=== PATIENT | female | born 1940 | race Caucasian/White ===

== ENCOUNTER 2017-01-11 21:32 | Emergency (ER) | payer OTHER ==
[~2017-01-11] VITALS: Ht 165.1 cm; Wt 79.4 kg
[~2017-01-11 21:32] MED LIST: ASPI-934 PO; COR6.25 PO; CORDARONE PO; FAMO20TA98 PO; FLUT1DIS IH; HYDR-1189 PO; IRON1TAB8 PO; LOSA100T11 PO; ZOLP5TAB2 PO
[2017-01-11 21:39] VITALS: BP_SYST 162
[2017-01-12 00:04] VITALS: BP_SYST 144
== END 2017-01-12 00:04 | disposition home or self-care (01) ==
LOC: SED 21:32
DX: S83.92XA Sprain of unspecified site of left knee, initial encounter (principal); I10 Essential (primary) hypertension; Z86.73 Personal history of transient ischemic attack (TIA), and cerebral infarction without residual deficits; Z88.0 Allergy status to penicillin; Z88.2 Allergy status to sulfonamides; Z79.82 Long term (current) use of aspirin; Z79.899 Other long term (current) drug therapy; X58.XXXA Exposure to other specified factors, initial encounter; Y93.89 Activity, other specified; Y92.89 Other specified places as the place of occurrence of the external cause; Y99.8 Other external cause status
CPT/HCPCS: 73560-TC; 99284

== ENCOUNTER 2017-03-02 10:00 | Day surgery (SDC) | payer OTHER ==
[2017-02-28 11:55] LABS: BASOPHILS # (AUTO) 0.1 K/uL (0.0-0.2); BASOPHILS % (AUTO) 0.6 % (0.0-2.0); EOSINOPHILS # (AUTO) 0.2 K/uL (0.0-0.4); EOSINOPHILS % (AUTO) 2.2 % (0.0-4.0); HEMATOCRIT 47.3 % (36-48); HEMOGLOBIN 15.8 g/dL (12.0-16.0); LYMPHOCYTES % (AUTO) 22.9 % (20.5-51.5); MEAN CORPUSCULAR HEMOGLOBIN 32 pg (27-31); MEAN CORPUSCULAR HGB CONC 33 % (32-36); MEAN CORPUSCULAR VOLUME 95 fL (79.0-98.0); MONOCYTES # (AUTO) 0.6 K/uL (0.0-1.0); MONOCYTES % (AUTO) 6.5 % (1.7-9.3); NEUTROPHILS # (AUTO) 5.9 K/uL (1.8-7.7); NEUTROPHILS % (AUTO) 67.8 % (40.0-70.0); PLATELET COUNT (AUTO) 355 K/uL (130-430); RED BLOOD CELL COUNT(AUTO) 4.99 MIL/uL (4.2-6.2); WHITE BLOOD COUNT (AUTO) 8.8 K/uL (4.8-10.8)
[2017-02-28 11:56] LABS: ANION GAP 3 (5-15); CHLORIDE 102 mmol/L (98-107); GLUCOSE 101 mg/dL (70-99); SODIUM SERUM 139 mmol/L (136-145)
[2017-02-28 11:57] LABS: CALCIUM 9.5 mg/dL (8.4-11.0); CREATININE 0.91 mg/dL (0.55-1.30); PROTHROMBIN TIME 10.5 SECS (9.5-12.5); UREA NITROGEN, BLOOD 14 mg/dL (8-21)
[2017-02-28 12:11] LABS: BILIRUBIN,URINE NEGATIVE (NEGATIVE); BLOOD, URINE NEGATIVE (NEGATIVE); CLARITY/URINE HAZY (CLEAR); COLOR,URINE YELLOW (YELLOW); GLUCOSE,URINE NEGATIVE (NEGATIVE); KETONES,URINE NEGATIVE (NEGATIVE); LEUKOCYTE ESTERASE ,URINE 1+ (NEGATIVE); NITRITE, URINE POSITIVE (NEGATIVE); PROTEIN URINE NEGATIVE (NEGATIVE); UROBILINOGEN,URINE 0.2 (0.2-1.0)
[2017-02-28 13:02] LABS: BACTERIA,URINE MODERATE /HPF (None Seen); RBC,URINE 0-3 /HPF (0-3)
[~2017-03-02] VITALS: Ht 170.2 cm; Wt 62.6 kg
[2017-03-02] MEDS ORDERED: PROPOFOL 200MG/ 20ML VIAL (DIPRIVAN) IV ONE (11:45)
[2017-03-02] MEDS ORDERED: METOCLOPRAMIDE HCL 10 MG/2 ML VIAL IVP ONE (11:45)
[2017-03-02] MEDS ORDERED: DEXAMETHASONE SOD PHOSPHATE 4 MG/ML VIAL IVP ONE (11:45)
[2017-03-02] MEDS ORDERED: KETOROLAC TROMETHAMINE 30 MG VIAL IVP ONE (11:45)
[2017-03-02] MEDS ORDERED: MIDAZOLAM HCL 5 MG/5 ML VIAL IVP ONE (11:45)
[2017-03-02] MEDS ORDERED: BUPIVACAINE /EPINEPHRINE/PF 0.5% 30 ML VIAL INJ ONE (11:45)
[2017-03-02] MEDS ORDERED: fentaNYL CITRATE/PF 100 MCG/2 ML AMP IVP ONE (11:45)
[2017-03-02] MEDS ORDERED: LR 1,000 ML IV.SOLN IV ONE (11:45)
[2017-03-02] MEDS ORDERED: NS IRRIG SOLN 1000 ML IR ONE (11:45)
[2017-03-02] MEDS ORDERED: SEVOFLURANE 15 MIN GAS INH ONE (11:45)
[2017-03-02] MEDS ORDERED: LR 1,000 ML IV ONE (12:34)
[2017-03-02] MEDS ORDERED: ePHEDrine sulfate 50 MG/ML VIAL IVP PRN (12:45)
[2017-03-02] MEDS ORDERED: fentaNYL CITRATE/PF 100 MCG/2 ML AMP IVP PRN (12:45)
[2017-03-02] MEDS ORDERED: ONDANSETRON HCL 4 MG/2 ML VIAL IVP PRN ×2 (12:45)
[2017-03-02] MEDS ORDERED: DIPHENHYDRAMINE INJ 50 MG/ML VIAL IVP PRN (12:45)
[2017-03-02] MEDS ORDERED: NALBUPHINE HCL 10 MG/ML AMP IVP PRN (12:45)
[2017-03-02] MEDS ORDERED: NALOXONE HCL 0.4 MG/ML AMP (NARCAN) IVP PRN (12:45)
[2017-03-02] MEDS ORDERED: fentaNYL CITRATE/PF 100 MCG/2 ML AMP ONE (13:11)
[2017-03-02 13:45] VITALS: BP_SYST 137
[2017-03-02] MEDS ORDERED: ONDANSETRON HCL 4 MG/2 ML VIAL ONE (14:35)
[2017-03-02] MEDS ORDERED: HYDROcodone/ACETAMIN 5-325 MG TAB (NORCO/ VICODIN) ONE (14:36)
== END 2017-03-02 15:20 | disposition home or self-care (01) ==
LOC: SDS 10:00 → SMU 10:00 → SDS 15:20
PROVIDERS: ATTEND Orthopaedic Surgery
DX: M23.201 Derangement of unspecified lateral meniscus due to old tear or injury, left knee (principal); M22.02 Recurrent dislocation of patella, left knee; M17.12 Unilateral primary osteoarthritis, left knee; Z88.0 Allergy status to penicillin; Z88.8 Allergy status to other drugs, medicaments and biological substances; Z79.899 Other long term (current) drug therapy; F17.200 Nicotine dependence, unspecified, uncomplicated; J44.9 Chronic obstructive pulmonary disease, unspecified; Z95.1 Presence of aortocoronary bypass graft; I10 Essential (primary) hypertension; I25.10 Atherosclerotic heart disease of native coronary artery without angina pectoris; E78.5 Hyperlipidemia, unspecified; F41.9 Anxiety disorder, unspecified; Z90.710 Acquired absence of both cervix and uterus; Z98.890 Other specified postprocedural states
CPT/HCPCS: 27425; 29881; 36415; 71020; 80048; 81000; 85025; 85610; 85730; 93005; J1100; J1885; J2250; J2405; J2704; J2765; J3010; J3490; J7120

== ENCOUNTER 2022-01-02 18:02 | Inpatient (IN) | payer OTHER ==
[~2022-01-02] VITALS: Ht 172.7 cm; Wt 49.4 kg
[~2022-01-02 18:02] MED LIST changes: +FAMO-132 PO; -FAMO20TA98 PO; -HYDR-1189 PO; +HYDR-3919 PO; -LOSA100T11 PO; +LOSA100T3 PO
[2022-01-02 18:10] VITALS: BP_SYST 129
--- NOTE | 2022-01-02 18:10 | NUR ---
Patient to ER bed 01 for evaluation. Side rails up. Report given to Margaret FINN.
--- NOTE | 2022-01-02 18:10 | NUR ---
81yo f biba from home with c/o general weakness since this morning. denies pain. denies any other symptoms. in ed, vss. aox3. able to answer questions appropriately and follows commands. clear breath sounds. 2 siderails up. ermd made aware of pt status. pmh: Parkinsons, htn, copd
--- NOTE | 2022-01-02 18:16 | NUR ---
pt verbalized that she is unable to provide urine specimen at this time
[2022-01-02 19:01] LABS: CALCIUM 8.8 mg/dL (8.4-11.0); CHLORIDE 97 mmol/L (98-107); CREATININE 1.24 mg/dL (0.55-1.30); GLUCOSE 117 mg/dL (70-99); SODIUM SERUM 141 mmol/L (136-145); UREA NITROGEN, BLOOD 34 mg/dL (8-21)
[2022-01-02 19:05] LABS: ACETONE, SERUM NEGATIVE (NEGATIVE)
[2022-01-02 19:08] LABS: BASOPHILS % (AUTO) 0.2 % (0.0-2.0); EOSINOPHILS # (AUTO) 0.1 K/uL (0.0-0.4); EOSINOPHILS % (AUTO) 1.3 % (0.0-4.0); HEMATOCRIT 29.4 % (36-48); HEMOGLOBIN 10.2 g/dL (12.0-16.0); LYMPHOCYTES # (AUTO) 1.2 K/uL (1.0-5.5); LYMPHOCYTES % (AUTO) 11.5 % (20.5-51.5); MEAN CORPUSCULAR HEMOGLOBIN 32 pg (27-31); MEAN CORPUSCULAR HGB CONC 35 % (32-36); MEAN CORPUSCULAR VOLUME 92 fL (79.0-98.0); MONOCYTES # (AUTO) 0.6 K/uL (0.0-1.0); MONOCYTES % (AUTO) 5.8 % (1.7-9.3); NEUTROPHILS # (AUTO) 8.6 K/uL (1.8-7.7); NEUTROPHILS % (AUTO) 81.2 % (40.0-70.0); PLATELET COUNT (AUTO) 266 K/uL (130-430); RED CELL DISTRIBUTION WIDTH 14.8 % (9.0-15.0); WHITE BLOOD COUNT (AUTO) 10.6 K/uL (4.8-10.8)
--- NOTE | 2022-01-02 19:10 | NUR ---
REPORT GIVEN TO AAKASH WILSON. ALL CARES TRANSFERRED AT THIS TIME.
[2022-01-02 19:16] LABS: ALANINE AMINOTRANSFERASE 13 U/L (12-78); ALBUMIN 2.6 g/dL (3.4-4.8); ASPARTATE AMINOTRANSFERASE 23 U/L (10-37); TOTAL BILIRUBIN 0.5 mg/dL (0.0-1.0)
[2022-01-02 19:34] LABS: POTASSIUM 2.7 mmol/L (3.5-5.1)
[2022-01-02 19:36] LABS: ANION GAP 3 (5-15)
--- NOTE | 2022-01-02 20:09 | NUR ---
PT IS IN BED WITH BED LOWERED, LOCKED, AND RAILS UP. VS ARE WITHIN NORMAL LIMITS. PT DENIES ANY PAIN. INSERTED IV ON L AC/22 GAUGE. LOWERED O2 TO 1L PT O2 SAT WAS 100 HAS COPD.
--- NOTE | 2022-01-02 20:29 | NUR ---
Admit bed requested Patient will be admitted to care of . Admitted to TELE unit. Diagnosis ALOC,HYPOKALEMIA Inpatient (Yes or No) YES Observation (Yes or No) NO Orientation concerns or request close to nursing station (Yes or No) YES Covid Status PENDING On vent or bipap NO Isolation requirements NO Needs a sitter NO From Home (Yes or if No enter name of facility) YES Requires Dialysis (Yes or No) NO Med Rec Completed (Yes of No) PENDING
[2022-01-02] MEDS ORDERED: KCL 40 mEq in 100 mL (PREMIX) 100 ML IV ONE (20:30)
[2022-01-02] MEDS ORDERED: LR 1,000 ML IV SCH (20:30)
[2022-01-02] MEDS ORDERED: KCL 20 mEq in 100 mL (PREMIX) 200 ML IV ONE (20:54)
[2022-01-02 22:15] VITALS: BP_SYST 153
--- NOTE | 2022-01-03 00:07 | NUR ---
changed pt fluids from the LR to D5W 1000/100 ML UNABLE TO CHART STOP IN EMAR WAS ADV BY TEO RN (CHARGE NURSE)DO DOCUMENT CHANGE OF FLUIDS
[2022-01-03] MEDS: D5LR 1,000 ML IV SCH (00:10)
[2022-01-03] MEDS ORDERED: MORPHINE 2 MG/ML INJ. SYRINGE IVP ONE (01:00)
[2022-01-03] MEDS ORDERED: NALOXONE HCL 0.4 MG/ML AMP (NARCAN) IVP PRN (01:00)
[2022-01-03] MEDS ORDERED: MORPHINE 2 MG/ML INJ. SYRINGE ONE (01:14)
[2022-01-03] MEDS: ALBUTEROL SULFATE 0.083% 2.5 MG/3 ML VIAL.NEB INH SCH ×4 (01:29→20:28)
[2022-01-03 06:47] LABS: BASOPHILS % (AUTO) 0.3 % (0.0-2.0); EOSINOPHILS # (AUTO) 0.1 K/uL (0.0-0.4); EOSINOPHILS % (AUTO) 1.3 % (0.0-4.0); HEMATOCRIT 28.4 % (36-48); HEMOGLOBIN 9.9 g/dL (12.0-16.0); LYMPHOCYTES % (AUTO) 10.1 % (20.5-51.5); MEAN CORPUSCULAR HEMOGLOBIN 32 pg (27-31); MEAN CORPUSCULAR HGB CONC 35 % (32-36); MEAN CORPUSCULAR VOLUME 92 fL (79.0-98.0); MONOCYTES # (AUTO) 0.6 K/uL (0.0-1.0); MONOCYTES % (AUTO) 6.5 % (1.7-9.3); NEUTROPHILS # (AUTO) 7.8 K/uL (1.8-7.7); NEUTROPHILS % (AUTO) 81.8 % (40.0-70.0); PLATELET COUNT (AUTO) 249 K/uL (130-430); RED BLOOD CELL COUNT(AUTO) 3.09 MIL/uL (4.2-6.2); RED CELL DISTRIBUTION WIDTH 14.7 % (9.0-15.0); WHITE BLOOD COUNT (AUTO) 9.6 K/uL (4.8-10.8)
[2022-01-03 07:07] LABS: ALANINE AMINOTRANSFERASE 17 U/L (12-78); ALBUMIN 2.5 g/dL (3.4-4.8); ANION GAP 0 (5-15); ASPARTATE AMINOTRANSFERASE 23 U/L (10-37); CALCIUM 8.6 mg/dL (8.4-11.0); CHLORIDE 97 mmol/L (98-107); CREATININE 0.99 mg/dL (0.55-1.30); GLUCOSE 140 mg/dL (70-99); POTASSIUM 3.2 mmol/L (3.5-5.1); SODIUM SERUM 140 mmol/L (136-145); TOTAL BILIRUBIN 0.4 mg/dL (0.0-1.0); UREA NITROGEN, BLOOD 26 mg/dL (8-21)
--- NOTE | 2022-01-03 07:19 | NUR ---
Report from Sebastian FINN.
--- NOTE | 2022-01-03 07:22 | NUR ---
Lab called and let Sebastian know that the CO2 was 43. Spoke w Dr. Simon- and he stated that it was better than 45- no new oders.
--- NOTE | 2022-01-03 08:03 | NUR ---
Patient resting in bed. Denies any pain. Noted to have slight wheezes bilaterally, RT @ BS giving treatment. Prior to this patient was incontinent of urine, cleansed patient, changed sheets on the bed. Patient aware that we are waiting for admission. VSS. IV had to be readjusted- KCL and fluids running. Will monitor.
[2022-01-03] MEDS ORDERED: [UNRECOGNIZED DRUG - OTHER] PO SCH (09:00)
[2022-01-03] MEDS ORDERED: IRON PO SCH (09:00)
[2022-01-03] MEDS ORDERED: FLUTICASONE 100 mCg/SALMETEROL 50 mCg DISKUS W.DEV INH SCH (09:00)
[2022-01-03] MEDS ORDERED: LOSARTAN POTASSIUM 50 MG TABLET (COZAAR) PO SCH (09:00)
[2022-01-03] MEDS: BUDESONIDE 0.5 MG/2 ML AMPUL.NEB INH SCH ×2 (09:15→20:28)
[2022-01-03] MEDS ORDERED: KCL 20 mEq in 100 mL (PREMIX) 200 ML IV ONE (09:45)
[2022-01-03] MEDS: FAMOTIDINE 20 MG TABLET PO SCH (10:12)
[2022-01-03] MEDS: ASPIRIN 81 MG TABLET(ECOTRIN) PO SCH (10:12)
[2022-01-03] MEDS: CARVEDILOL 6.25 MG TABLET (COREG) PO SCH (10:12)
[2022-01-03] MEDS: MULTIVITS,CA,MINERALS/IRON/FA 1 TABLET PO SCH (10:12)
--- NOTE | 2022-01-03 10:12 | NUR ---
Rip Lopez, of pt, called and stated his concerns on placement for pt. stated he can not completely care for her and meet her needs and would like block and case maker to see pt. i stated there is no block and case maker on weekends, but i will leave voicemail for block and case maker to listen on Tuesday. Rip Lopez [facility] Line #: [phone] Cell #: [phone]
--- NOTE | 2022-01-03 10:19 | NUR ---
left voicemail with egg caserKecia
[2022-01-03] MEDS ORDERED: LACTOBACILLUS RHAMNOSUS GG 1 CAP CAPSULE PO ONE (11:15)
[2022-01-03] MEDS ORDERED: ALBUTEROL SULFATE 0.083% 2.5 MG/3 ML VIAL.NEB INH ONE (12:35)
--- NOTE | 2022-01-03 20:31 | NUR ---
Patient will be admitted to care of Dr. Simon. Admitted to telemetry unit. Will go to room 106A. Belongings list completed. Complete and up to date summary report printed. SBAR report given to Man FINN via telephone with opportunity for questions.
[2022-01-03 22:04] VITALS: BP_SYST 149
[2022-01-04 00:48] VITALS: BP_SYST 184
[2022-01-04] MEDS: LACTOBACILLUS RHAMNOSUS GG 1 CAP CAPSULE PO SCH ×3 (01:00→21:51)
[2022-01-04] MEDS: CARVEDILOL 6.25 MG TABLET (COREG) PO SCH ×3 (01:00→21:51)
[2022-01-04] MEDS: ALBUTEROL SULFATE 0.083% 2.5 MG/3 ML VIAL.NEB INH SCH ×3 (01:00→14:08)
[2022-01-04] MEDS: D5LR 1,000 ML IV SCH ×2 (01:00→15:37)
[2022-01-04 06:54] LABS: BASOPHILS % (AUTO) 0.2 % (0.0-2.0); EOSINOPHILS # (AUTO) 0.1 K/uL (0.0-0.4); EOSINOPHILS % (AUTO) 1.2 % (0.0-4.0); HEMATOCRIT 31.1 % (36-48); HEMOGLOBIN 10.9 g/dL (12.0-16.0); LYMPHOCYTES % (AUTO) 9.8 % (20.5-51.5); MEAN CORPUSCULAR HEMOGLOBIN 32 pg (27-31); MEAN CORPUSCULAR HGB CONC 35 % (32-36); MEAN CORPUSCULAR VOLUME 91 fL (79.0-98.0); MONOCYTES # (AUTO) 0.7 K/uL (0.0-1.0); MONOCYTES % (AUTO) 7.2 % (1.7-9.3); NEUTROPHILS # (AUTO) 8.4 K/uL (1.8-7.7); NEUTROPHILS % (AUTO) 81.6 % (40.0-70.0); PLATELET COUNT (AUTO) 274 K/uL (130-430); RED CELL DISTRIBUTION WIDTH 14.6 % (9.0-15.0); WHITE BLOOD COUNT (AUTO) 10.4 K/uL (4.8-10.8)
[2022-01-04 07:10] LABS: ANION GAP 2 (5-15); CALCIUM 8.5 mg/dL (8.4-11.0); CHLORIDE 97 mmol/L (98-107); CREATININE 0.93 mg/dL (0.55-1.30); GLUCOSE 133 mg/dL (70-99); POTASSIUM 3.4 mmol/L (3.5-5.1); SODIUM SERUM 139 mmol/L (136-145); UREA NITROGEN, BLOOD 14 mg/dL (8-21)
[2022-01-04] MEDS: BUDESONIDE 0.5 MG/2 ML AMPUL.NEB INH SCH (07:28)
[2022-01-04 07:53] LABS: BILIRUBIN,URINE NEGATIVE (NEGATIVE); CLARITY/URINE CLEAR (CLEAR); COLOR,URINE YELLOW (YELLOW); GLUCOSE,URINE NEGATIVE (NEGATIVE); KETONES,URINE NEGATIVE (NEGATIVE); LEUKOCYTE ESTERASE ,URINE TRACE (NEGATIVE); NITRITE, URINE NEGATIVE (NEGATIVE); PROTEIN URINE NEGATIVE (NEGATIVE)
[2022-01-04 08:00] VITALS: BP_SYST 148
--- NOTE | 2022-01-04 08:00 | NUR ---
Initial Notes Patient is AOx3. No s/s of distress noted. Patient Spo2 is at 95 on 1L O2 via nasal cannula. NO SOB. Denies any pain at this time. Breathing is even and nonlabored. Vital signs obtained, as documented. HOB is elevated, breakfast is on bedside table, patient is eating. Safety precautions in place and call light within reach.
[2022-01-04 08:28] LABS: BLOOD, URINE TRACE (NEGATIVE)
[2022-01-04 08:30] LABS: BACTERIA,URINE None Seen /HPF (None Seen)
[2022-01-04] MEDS: FAMOTIDINE 20 MG TABLET PO SCH (09:20)
[2022-01-04] MEDS: ASPIRIN 81 MG TABLET(ECOTRIN) PO SCH (09:20)
[2022-01-04] MEDS: MULTIVITS,CA,MINERALS/IRON/FA 1 TABLET PO SCH (09:20)
[2022-01-04] MEDS ORDERED: POTASSIUM CHLORIDE 20 MEQ TAB.PRT.SR PO ONE (10:30)
[2022-01-04] MEDS ORDERED: MEGESTROL ACETATE 400 MG/10 ML UDC PO ONE (11:15)
--- NOTE | 2022-01-04 12:00 | NUR ---
Notes Patient is has been cleaned and repositioned. Patient is eating lunch. No s/s of distress noted. Denies pain. Safety precautions in place and call light within reach.
--- NOTE | 2022-01-04 12:18 | NUR ---
DC PLANNING Received call from Rui Paul from [facility] and [facility], ph [phone]. States that has spoken with pt's & plan is for pt to be discharged to one of his board and care's upon discharge if stable for a dc home. They cannot do IV abx, but can take on home O2 if needed. Aware pt has been wc bound & is ok for their B&C. His is working on getting a bed at one of his homes.
[2022-01-04 12:57] VITALS: BP_SYST 157
--- NOTE | 2022-01-04 15:43 | NUR ---
Discharge Planning: DCP faxed [facility] [phone] DCP to follow up
--- NOTE | 2022-01-04 16:30 | NUR ---
NOTES PATIENT'S IV GOT PULLED OUT. PATIENT IN NO DISTRESS. PATIENT STATES NO PAIN. WILL INSERT NEW IV. SAFETY PRECAUTIONS IN PLACE AND CALL LIGHT WITHIN REACH.
[2022-01-04 16:57] VITALS: BP_SYST 136; BP_SYST 149
--- NOTE | 2022-01-04 17:41 | NUR ---
ST EVALUATION COMPLETED. ST TX NOT INDICATED AT THIS TIME. RECOMMEND PO DIET OF MECHANICAL SOFT AND THIN LIQUID. SUPERVISION FOR MEALS AND FULL ASPIRATION PRECAUTIONS
--- NOTE | 2022-01-04 19:02 | NUR ---
CLOSING NOTE PATIENT IS EATING DINNER, NO S/S OF DISTRESS NOTED. NO FACIAL GRIMACE NOTED. PATIENT DENIES PAIN. TRIED TO INSERT NEW IV TWICE, UNSUCCESSFUL. ANOTHER NURSE ATTEMPTED TO INSERT IV, ALSO UNSUCCESSFUL. WILL ENDORSE TO INCOMING NURSE. ALL NEEDS MET. SAFETY PRECAUTIONS IN PLACE AND CALL LIGHT WITHIN REACH.
[2022-01-04 20:10] VITALS: BP_SYST 181
[2022-01-05] MEDS: ALBUTEROL SULFATE 0.083% 2.5 MG/3 ML VIAL.NEB INH SCH ×5 (00:23→21:26)
[2022-01-05] MEDS: BUDESONIDE 0.5 MG/2 ML AMPUL.NEB INH SCH ×3 (00:23→21:26)
[2022-01-05 01:09] VITALS: BP_SYST 166
[2022-01-05 06:28] LABS: BASOPHILS % (AUTO) 0.5 % (0.0-2.0); EOSINOPHILS # (AUTO) 0.1 K/uL (0.0-0.4); EOSINOPHILS % (AUTO) 1.2 % (0.0-4.0); HEMATOCRIT 29.6 % (36-48); HEMOGLOBIN 10.3 g/dL (12.0-16.0); LYMPHOCYTES # (AUTO) 1.3 K/uL (1.0-5.5); MEAN CORPUSCULAR HEMOGLOBIN 32 pg (27-31); MEAN CORPUSCULAR HGB CONC 35 % (32-36); MEAN CORPUSCULAR VOLUME 93 fL (79.0-98.0); MONOCYTES # (AUTO) 0.8 K/uL (0.0-1.0); MONOCYTES % (AUTO) 8.7 % (1.7-9.3); NEUTROPHILS # (AUTO) 7.2 K/uL (1.8-7.7); NEUTROPHILS % (AUTO) 75.6 % (40.0-70.0); PLATELET COUNT (AUTO) 285 K/uL (130-430); RED BLOOD CELL COUNT(AUTO) 3.19 MIL/uL (4.2-6.2); RED CELL DISTRIBUTION WIDTH 14.6 % (9.0-15.0); WHITE BLOOD COUNT (AUTO) 9.5 K/uL (4.8-10.8)
[2022-01-05 06:46] LABS: PROTHROMBIN TIME 9.7 SECS (9.5-12.5)
[2022-01-05 07:11] LABS: CALCIUM 8.8 mg/dL (8.4-11.0); CHLORIDE 101 mmol/L (98-107); CREATININE 0.72 mg/dL (0.55-1.30); GLUCOSE 93 mg/dL (70-99); PHOSPHORUS 2.7 mg/dL (2.7-4.5); POTASSIUM 3.5 mmol/L (3.5-5.1); SODIUM SERUM 140 mmol/L (136-145); UREA NITROGEN, BLOOD 13 mg/dL (8-21)
[2022-01-05 07:30] VITALS: BP_SYST 131
--- NOTE | 2022-01-05 07:30 | NUR ---
OPEN NOTE Received patient in bed eating breakfast. A/O x3, kyrgyz speaking. No shortness of breath, saturations at 99% on 3LPM of o2. Patient on tele-AFIB. NO Pain noted or distress at this time. Patient currently has no IV access was poked multiple times over night per patient. All needs met and call light is within reach. Informed patient to please call for assistance. Safety precautions in place. Will continue to monitor.
[2022-01-05 07:35] VITALS: BP_SYST 119
--- NOTE | 2022-01-05 07:35 | NUR ---
OPEN NOTE Received patient in bed eating breakfast. A/O x4, Japanese speaking. Family at bedside. No shortness of breath, saturations at 95% on room air. Patient on tele-AFIB control. No Pain noted or distress at this time. Patient has IV access to LFA 20g, infused on . All needs met and call light is within reach. Informed patient and caregiver to please call for assistance. Safety precautions in place. Will continue to monitor. Addendum: 01/05/22 at 0805 by Jolly Salomon LVN WRONG PATIENT NOTE.
[2022-01-05 07:52] LABS: ANION GAP < 3 (5-15)
[2022-01-05] MEDS: D5LR 1,000 ML IV SCH (08:56)
--- NOTE | 2022-01-05 09:01 | NUR ---
Discharge Planning: DCP followed up with pt referral to [facility] [phone]. DCP made admissions aware if patient needs IV medication pt will have a skilled need, and spouse will pay privately. Patient has no medicare days remaining. DCP made CM aware. DCP to follow up
[2022-01-05] MEDS: MEGESTROL ACETATE 400 MG/10 ML UDC PO SCH (09:09)
[2022-01-05] MEDS: LACTOBACILLUS RHAMNOSUS GG 1 CAP CAPSULE PO SCH ×2 (09:09→22:00)
[2022-01-05] MEDS: MULTIVITS,CA,MINERALS/IRON/FA 1 TABLET PO SCH (09:10)
[2022-01-05] MEDS: CARVEDILOL 6.25 MG TABLET (COREG) PO SCH ×2 (09:10→22:00)
[2022-01-05] MEDS: POTASSIUM CHLORIDE 20 MEQ TAB.PRT.SR PO SCH (09:10)
[2022-01-05] MEDS: FAMOTIDINE 20 MG TABLET PO SCH (10:18)
[2022-01-05 11:33] VITALS: BP_SYST 159
--- NOTE | 2022-01-05 12:00 | NUR ---
PATIENT ROUNDS Patient resting in bed. No SOB, no pain, no distress noted. Patient noted a bit anxious and wanting the MD to give her anxiety medication, will call MD regarding this. IV site to LFA 22gauge patent and on infusion pump. All needs met, call light within reach. Safety precautions in place. Will continue to monitor.
--- NOTE | 2022-01-05 16:10 | NUR ---
PATIENT ROUNDS Patient resting in bed. No SOB, no pain, no distress noted. Patient had UA collected at 1539 via straight cath and sent over to lab. IV site to [facility] 22gauge patent and on infusion pump. All needs met, call light within reach. Safety precautions in place. Will continue to monitor.
--- NOTE | 2022-01-05 16:22 | NUR ---
Attempted PT visit, pt refused PT secondary to high anxiety levels, pt requested to come back tomorrow. ACTIVITIES ASSISTANT made aware.
[2022-01-05] MEDS: QUEtiapine FUMARATE 25 MG TABLET PO SCH (17:03)
[2022-01-05 17:07] VITALS: BP_SYST 149
[2022-01-05 18:08] LABS: BILIRUBIN,URINE NEGATIVE (NEGATIVE); BLOOD, URINE NEGATIVE (NEGATIVE); CLARITY/URINE CLEAR (CLEAR); COLOR,URINE YELLOW (YELLOW); GLUCOSE,URINE NEGATIVE (NEGATIVE); KETONES,URINE NEGATIVE (NEGATIVE); LEUKOCYTE ESTERASE ,URINE NEGATIVE (NEGATIVE); NITRITE, URINE NEGATIVE (NEGATIVE); PH,URINE 7.5 (5.0-8.0); PROTEIN URINE TRACE (NEGATIVE)
--- NOTE | 2022-01-05 18:44 | NUR ---
CLOSING NOTE Patient in bed resting. A/O x3, icelandic speaking. No shortness of breath, saturations at 99% on 3LPM of o2. Patient on tele-AFIB. NO Pain noted or distress at this time. Patient's IV site to LFA 22 gauge, patent and infusing well . All needs met and call light is within reach. Safety precautions in place. Will endorse to nightshift nurse.
[2022-01-05 18:46] LABS: BACTERIA,URINE FEW /HPF (None Seen); MUCUS,URINE None Seen /LPF (None Seen); RBC,URINE NONE SEEN /HPF (0-3); WBC,URINE 0-3 /HPF (0-3)
[2022-01-05 20:56] VITALS: BP_SYST 161
[2022-01-06 00:01] VITALS: BP_SYST 139
[2022-01-06] MEDS: ALBUTEROL SULFATE 0.083% 2.5 MG/3 ML VIAL.NEB INH SCH ×4 (01:00→20:24)
[2022-01-06] MEDS: D5LR 1,000 ML IV SCH (05:37)
[2022-01-06 06:33] LABS: BASOPHILS # (AUTO) 0.1 K/uL (0.0-0.2); BASOPHILS % (AUTO) 0.5 % (0.0-2.0); EOSINOPHILS # (AUTO) 0.1 K/uL (0.0-0.4); EOSINOPHILS % (AUTO) 1.2 % (0.0-4.0); HEMATOCRIT 29.1 % (36-48); HEMOGLOBIN 10.2 g/dL (12.0-16.0); LYMPHOCYTES # (AUTO) 1.4 K/uL (1.0-5.5); LYMPHOCYTES % (AUTO) 14.3 % (20.5-51.5); MEAN CORPUSCULAR HEMOGLOBIN 32 pg (27-31); MEAN CORPUSCULAR HGB CONC 35 % (32-36); MEAN CORPUSCULAR VOLUME 93 fL (79.0-98.0); MONOCYTES # (AUTO) 0.9 K/uL (0.0-1.0); MONOCYTES % (AUTO) 8.8 % (1.7-9.3); NEUTROPHILS # (AUTO) 7.4 K/uL (1.8-7.7); NEUTROPHILS % (AUTO) 75.2 % (40.0-70.0); PLATELET COUNT (AUTO) 300 K/uL (130-430); RED BLOOD CELL COUNT(AUTO) 3.14 MIL/uL (4.2-6.2); RED CELL DISTRIBUTION WIDTH 14.8 % (9.0-15.0); WHITE BLOOD COUNT (AUTO) 9.9 K/uL (4.8-10.8)
--- NOTE | 2022-01-06 07:30 | NUR ---
OPEN NOTE Received patient in bed resting. A/O x3, portuguese speaking. No shortness of breath, saturations at 99% on 2LPM of o2. Patient on tele-AFIB. NO Pain noted or distress at this time. Patient's IV site to LFA 22 gauge, patent and infusing well. All needs met and call light is within reach. Safety precautions in place. Will continue to monitor.
[2022-01-06] MEDS: BUDESONIDE 0.5 MG/2 ML AMPUL.NEB INH SCH ×2 (07:33→20:24)
[2022-01-06 07:47] VITALS: BP_SYST 164
[2022-01-06 08:26] LABS: ALANINE AMINOTRANSFERASE 20 U/L (12-78); ALBUMIN 2.4 g/dL (3.4-4.8); ANION GAP 0 (5-15); ASPARTATE AMINOTRANSFERASE 26 U/L (10-37); CALCIUM 8.7 mg/dL (8.4-11.0); CHLORIDE 104 mmol/L (98-107); CREATININE 0.86 mg/dL (0.55-1.30); GLUCOSE 98 mg/dL (70-99); POTASSIUM 4.1 mmol/L (3.5-5.1); SODIUM SERUM 139 mmol/L (136-145); TOTAL BILIRUBIN 0.2 mg/dL (0.0-1.0); UREA NITROGEN, BLOOD 11 mg/dL (8-21)
[2022-01-06] MEDS ORDERED: ASPIRIN 81 MG TABLET(ECOTRIN) PO SCH (09:00)
[2022-01-06] MEDS: POTASSIUM CHLORIDE 20 MEQ TAB.PRT.SR PO SCH (09:19)
[2022-01-06] MEDS: MULTIVITS,CA,MINERALS/IRON/FA 1 TABLET PO SCH (09:19)
[2022-01-06] MEDS: FAMOTIDINE 20 MG TABLET PO SCH (09:19)
[2022-01-06] MEDS: MEGESTROL ACETATE 400 MG/10 ML UDC PO SCH (09:20)
[2022-01-06] MEDS: CARVEDILOL 6.25 MG TABLET (COREG) PO SCH ×2 (09:20→21:06)
[2022-01-06] MEDS: LACTOBACILLUS RHAMNOSUS GG 1 CAP CAPSULE PO SCH ×2 (09:20→21:06)
[2022-01-06 11:38] VITALS: BP_SYST 124
--- NOTE | 2022-01-06 12:00 | NUR ---
PATIENT ROUNDS Patient resting in bed. No SOB, no pain, no distress noted. IV site to LFA 22gauge patent and on infusion pump. All needs met, call light within reach. Safety precautions in place. Will continue to monitor.
--- NOTE | 2022-01-06 16:00 | NUR ---
PATIENT ROUNDS Patient resting in bed. No SOB, no pain, no distress noted. IV site to LFA 22gauge patent and on infusion pump. changed dressings to right forearm skin tears, and bilateral legs. All needs met, call light within reach. Safety precautions in place. Will continue to monitor.
[2022-01-06 16:17] VITALS: BP_SYST 130
--- NOTE | 2022-01-06 16:39 | NUR ---
Attempted PT visit, pt refused, pt agreed to participate in PT in the morning, approx 0900, but requested to come back after taking her anxiety medication. Returned approx 1500, and pt refused PT and requested to be seen tomorrow, despite having anxiety medication administered.
[2022-01-06] MEDS: QUEtiapine FUMARATE 25 MG TABLET PO SCH (17:00)
--- NOTE | 2022-01-06 18:38 | NUR ---
CLOSING NOTE Patient in bed resting. A/O x3, German speaking. No shortness of breath, saturations at 99% on 2LPM of o2. Patient was downgraded to medsurg earlier today. No Pain noted or distress at this time. Patient's IV site to LFA 22 gauge, patent and infusing well. All needs met and call light is within reach. Safety precautions in place. Will endorse to nightshift nurse.
[2022-01-06 20:10] VITALS: BP_SYST 156
[2022-01-07 00:46] VITALS: BP_SYST 129
[2022-01-07] MEDS: ALBUTEROL SULFATE 0.083% 2.5 MG/3 ML VIAL.NEB INH SCH ×3 (01:00→13:23)
[2022-01-07] MEDS: D5LR 1,000 ML IV SCH (01:13)
--- NOTE | 2022-01-07 03:34 | NUR ---
Rounds Patient asleep in bed, unlabored breathing on NC. No complaint of pain. AOx3. IV fluids infusing per order. Call light in reach, fall and safety precautions in place.
[2022-01-07 07:00] VITALS: BP_SYST 134
--- NOTE | 2022-01-07 07:08 | NUR ---
Closing Patient resting in bed, unlabored breathing on 2L NC. IV fluids infusing as ordered. Photos taken of wounds on forearm and lower extremity, dressings changed. Call light in reach, fall and safety precautions in place.
[2022-01-07] MEDS: BUDESONIDE 0.5 MG/2 ML AMPUL.NEB INH SCH (07:19)
[2022-01-07 07:36] LABS: CALCIUM 8.1 mg/dL (8.4-11.0); CHLORIDE 108 mmol/L (98-107); GLUCOSE 98 mg/dL (70-99); POTASSIUM 4.5 mmol/L (3.5-5.1); SODIUM SERUM 141 mmol/L (136-145); UREA NITROGEN, BLOOD 11 mg/dL (8-21)
[2022-01-07 07:51] LABS: ANION GAP < 3 (5-15)
[2022-01-07 08:00] VITALS: BP_SYST 134
[2022-01-07] MEDS: MEGESTROL ACETATE 400 MG/10 ML UDC PO SCH (08:31)
[2022-01-07] MEDS: POTASSIUM CHLORIDE 20 MEQ TAB.PRT.SR PO SCH (08:31)
[2022-01-07] MEDS: MULTIVITS,CA,MINERALS/IRON/FA 1 TABLET PO SCH (08:31)
[2022-01-07] MEDS: FAMOTIDINE 20 MG TABLET PO SCH (08:31)
[2022-01-07] MEDS: LACTOBACILLUS RHAMNOSUS GG 1 CAP CAPSULE PO SCH (08:31)
[2022-01-07] MEDS: CARVEDILOL 6.25 MG TABLET (COREG) PO SCH (08:32)
--- NOTE | 2022-01-07 08:48 | NUR ---
CM : informed spouse/Rip # [phone] the dcp to snf vs B/C. Rip wants pt to go back to B/C at [facility], address [address] [place] [id number] , tel [phone] attn Rui Benavidez, advertising assistant manager. Home health: [facility]: [address], tel # [phone]. Addendum: 01/07/22 at 0901 by Grace Grey RN Home health: [facility]: [address], [place], [address] tel # [phone].
--- NOTE | 2022-01-07 11:35 | NUR ---
Discharge Planning: DCP faxed [facility] [phone]. DCP to follow up
[2022-01-07] MEDS ORDERED: MIRT-114 PO (12:10)
[2022-01-07] MEDS ORDERED: ALBU2.5V7 INH (12:10)
[2022-01-07] MEDS ORDERED: LEVO250T43 PO (12:10)
[2022-01-07] MEDS ORDERED: SER25 PO (12:10)
[2022-01-07] MEDS ORDERED: LACT1CAP57 PO (12:10)
[2022-01-07] MEDS ORDERED: MEGE400O4 PO (12:10)
[2022-01-07] MEDS ORDERED: BUDE0.5A INH (12:10)
[2022-01-07] MEDS ORDERED: MULT-1145 PO (12:10)
[2022-01-07 12:16] VITALS: BP_SYST 146
--- NOTE | 2022-01-07 13:28 | NUR ---
CM: AMBULANCE : Booked with [facility] ambulance # for cigar packer and picker time at 1430 to [facility] B/C -- AAKASH Stephen made aware. Addendum: 01/07/22 at 1332 by Grace Grey RN Spouse is blind, no other family to cigar packer and picker, the pt is unsafe for the wheelchair transport. Addendum: 01/07/22 at 1419 by Grace Grey RN Informed Rip, spouse for the transfer to [facility] via ambulance ETA 230 - 3 pm. He agreed with the discharge.
[2022-01-07 14:09] VITALS: BP_SYST 146
--- NOTE | 2022-01-07 14:32 | NUR ---
S/W Rui at [facility] accepted the patient , informed the transfer ETA around 230-3 pm. Rui stated will have O2 to accommodate the needs at his facility. He will poultry picker the home o2 and nebulizer at the pt 's resident around 330 pm, said he had emergency to take family to at the moment.
--- NOTE | 2022-01-07 14:45 | NUR ---
Nutrition Note RD attempted to see pt for Nutrition F/U this afternoon, however, primary RN was preparing pt for D/C. Nutrition F/U deferred at this time.
--- NOTE | 2022-01-07 15:01 | NUR ---
Patient alert awake oriented to person place and time. Denies any pain. Left sl removed-no bleeding noted. Skin fragile, purnima ue/le bruises, scabs, skin tear, sacral redness-intact , applied barrier cream for bladder incontinence. Patient crying and upset about her transfer to Board and care. CM and I Explained to patient that CM has been communicating with her Rip. Patient refused to sign discharge paper at this time. BP 161/73, 82p, 16r, 97.2temp. Ambulance is here to come and filler picker patient to B&C Sent all personal belongings with patient (dentures full top and bottom, red purse with her blk wallet, tshirt, glasses) Report given to Rui Sesay and aware that patient will be going there via ambulance. Patient DME will be picked up from her home and will bring it to Board and Care.
--- NOTE | 2022-01-07 15:32 | NUR ---
Patient dc to B&C via ambulance.
--- NOTE | 2022-01-07 15:40 | NUR ---
Attempted PT visit, pt appeared to be agitated and confused, RN did not clear pt for PT. Pt is also preparing to be D/C'd.
[2022-01-07 16:10] VITALS: BP_SYST 160
[2022-01-07] MEDS ORDERED: MIRTAZAPINE 15 MG TABLET PO SCH (21:00)
== END 2022-01-07 15:35 | disposition home health service (06) | DRG 640 ==
LOC: SED 18:02 → STU 20:23 → SMU 01-06 15:13
PROVIDERS: ADMIT Internal Medicine; ATTEND Internal Medicine
DX: E86.0 Dehydration (principal); E43 Unspecified severe protein-calorie malnutrition; G93.41 Metabolic encephalopathy; J18.9 Pneumonia, unspecified organism; N39.0 Urinary tract infection, site not specified; Z68.1 Body mass index [BMI] 19.9 or less, adult; E87.6 Hypokalemia; R62.7 Adult failure to thrive; G20 Parkinson's disease; I10 Essential (primary) hypertension; Z20.822 Contact with and (suspected) exposure to COVID-19; F02.80 Dementia in other diseases classified elsewhere, unspecified severity, without behavioral disturbance, psychotic disturbance, mood disturbance, and anxiety; I25.10 Atherosclerotic heart disease of native coronary artery without angina pectoris; F41.9 Anxiety disorder, unspecified; F32.A Depression, unspecified; J44.9 Chronic obstructive pulmonary disease, unspecified; Z86.73 Personal history of transient ischemic attack (TIA), and cerebral infarction without residual deficits; Z79.899 Other long term (current) drug therapy; Z88.0 Allergy status to penicillin; Z88.2 Allergy status to sulfonamides; Z95.1 Presence of aortocoronary bypass graft
CPT/HCPCS: 36415; 71045; 71250-TC; 76376; 80048; 80053; 81000; 82009; 82550; 83605; 83735; 84100; 85025; 85610-TC; 85730-TC; 87086; 92610-GN; 93005; 94640; 94760; 99285; G0378; J1956; J2270; J3480; J7613; J7626

== ENCOUNTER 2022-03-26 11:57 | Inpatient (IN) | payer OTHER ==
[~2022-03-26] VITALS: Ht 172.7 cm; Wt 44.5 kg
[~2022-03-26 11:57] MED LIST changes: +ALBU2.5V7 INH; +BUDE0.5A INH; -HYDR-3919 PO; +LACT1CAP57 PO; +LEVO250T73 PO; -LOSA100T3 PO; +MEGE400O4 PO; +MIRT-114 PO; +MULT-1145 PO; +SER25 PO; -ZOLP5TAB2 PO
[2022-03-26 12:17] VITALS: BP_SYST 154
[2022-03-26 13:37] LABS: BASOPHILS % (AUTO) 0.4 % (0.0-2.0); EOSINOPHILS # (AUTO) 0.2 K/uL (0.0-0.4); EOSINOPHILS % (AUTO) 1.8 % (0.0-4.0); HEMATOCRIT 37.1 % (36-48); HEMOGLOBIN 12.4 g/dL (12.0-16.0); LYMPHOCYTES # (AUTO) 1.7 K/uL (1.0-5.5); LYMPHOCYTES % (AUTO) 17.6 % (20.5-51.5); MEAN CORPUSCULAR HEMOGLOBIN 28 pg (27-31); MEAN CORPUSCULAR HGB CONC 34 % (32-36); MEAN CORPUSCULAR VOLUME 84 fL (79.0-98.0); MONOCYTES # (AUTO) 0.9 K/uL (0.0-1.0); MONOCYTES % (AUTO) 9.5 % (1.7-9.3); NEUTROPHILS # (AUTO) 6.9 K/uL (1.8-7.7); NEUTROPHILS % (AUTO) 70.7 % (40.0-70.0); PLATELET COUNT (AUTO) 325 K/uL (130-430); RED BLOOD CELL COUNT(AUTO) 4.42 MIL/uL (4.2-6.2); WHITE BLOOD COUNT (AUTO) 9.7 K/uL (4.8-10.8)
[2022-03-26 13:45] LABS: ANION GAP 2 (5-15); CALCIUM 9.5 mg/dL (8.4-11.0); CHLORIDE 94 mmol/L (98-107); CREATININE 0.98 mg/dL (0.55-1.30); GLUCOSE 95 mg/dL (70-99); UREA NITROGEN, BLOOD 23 mg/dL (8-21)
[2022-03-26 13:51] LABS: ALANINE AMINOTRANSFERASE 10 U/L (12-78); ALBUMIN 3.1 g/dL (3.4-4.8); ASPARTATE AMINOTRANSFERASE 18 U/L (10-37); LIPASE 57 U/L (73-393); TOTAL BILIRUBIN 0.5 mg/dL (0.0-1.0)
[2022-03-26 14:00] LABS: POTASSIUM 2.4 mmol/L (3.5-5.1)
[2022-03-26 14:16] LABS: ERYTHROCYTE SEDIMENTATION RATE 20 MM/HR (0-20)
--- NOTE | 2022-03-26 14:22 | NUR ---
Patient to ER bed 3 to gown for evaluation. Side rails up. Report given to Lizzy FINN.
--- NOTE | 2022-03-26 14:25 | NUR ---
BIB BLS from [facility] c/c Abd Pain x 3 days. Per facility patient has not had a BM x4days. Patient awake unable to assess orientation. Confusion noted. 2L NC in no acute distress and or discomfort.
[2022-03-26] MEDS ORDERED: KCL 20 mEq in 100 mL (PREMIX) 100 ML IV ONE ×2 (14:30→19:28)
--- NOTE | 2022-03-26 16:23 | NUR ---
Urine collected and sent to lab
--- NOTE | 2022-03-26 16:24 | NUR ---
#22G PIV placed to Left FA
--- NOTE | 2022-03-26 16:25 | NUR ---
Patient remvoed PIV #20G to Left FA
[2022-03-26] MEDS ORDERED: MAGNESIUM CITRATE 300 ML ORAL SOLUTION PO ONE (16:45)
[2022-03-26] MEDS ORDERED: MINERAL OIL 30 ML UDC PO ONE (16:45)
--- NOTE | 2022-03-26 16:47 | NUR ---
Admit bed requested Patient will be admitted to care of . Admitted to MEDSURG unit. Diagnosis FECAL IMPACTION/ABD PAIN Inpatient (Yes or No) Y Observation (Yes or No) N Orientation concerns or request close to nursing station (Yes or No) N Covid Status PENDING On vent or bipap NO Isolation requirements NO Needs a sitter N From Home (Yes or if No enter name of facility) N Requires Dialysis (Yes or No) N Med Rec Completed (Yes of No) Y
--- NOTE | 2022-03-26 16:55 | NUR ---
Mag Citrate on national back order, unable to adminster medication, aware.
--- NOTE | 2022-03-26 16:56 | NUR ---
#20G Placed to Left AC, wrapped with coban
[2022-03-26 17:00] LABS: BILIRUBIN,URINE NEGATIVE (NEGATIVE); BLOOD, URINE 1+ (NEGATIVE); COLOR,URINE YELLOW (YELLOW); GLUCOSE,URINE NEGATIVE (NEGATIVE); KETONES,URINE NEGATIVE (NEGATIVE); LEUKOCYTE ESTERASE ,URINE 2+ (NEGATIVE); NITRITE, URINE NEGATIVE (NEGATIVE); PH,URINE 8.5 (5.0-8.0); PROTEIN URINE 2+ (NEGATIVE)
[2022-03-26 17:12] LABS: CLARITY/URINE SLIGHTLY CLOUDY (CLEAR)
[2022-03-26 17:13] LABS: BACTERIA,URINE MODERATE /HPF (None Seen); MUCUS,URINE None Seen /LPF (None Seen); RBC,URINE 0-3 /HPF (0-3); TRIPLE PHOSPHATE CRYSTAL,UR 0-10 /HPF (None Seen); WBC,URINE 20-50 /HPF (0-3)
--- NOTE | 2022-03-26 19:06 | NUR ---
Closing Note Report given to incoming NOC RN, all cares endorsed.
--- NOTE | 2022-03-26 19:47 | NUR ---
pt is aa&ox1-2. w/ periods of confusion and forgetfulness. nad, afebrile. denies pain. b & b incontinent. bedbound. w/ 20G on lac w/ potassium 20meq running. kept clean & comfortable. saturating 99% 2L/min via n/c. will con't to monitor.
[2022-03-26 20:10] VITALS: BP_SYST 168
--- NOTE | 2022-03-26 20:10 | NUR ---
ADMISSION NOTE Received patient from ER via gurney. Patient admitted with diagnosis of abdominal pain and fecal impaction. Patient is awake, alert, oriented X2, episode of forgetfulness noted. Patient oriented to hospital room, call light, toileting, pain management and safety-teach back done. Patient informed that I (Indira) will be her nurse and that their room number is 132-A. Personal belongings checked and Belongings List documented. Call light within reach. Bed alarmed, side rails x3, places near Nurses' station. Fall precaution in place. Discussed plan of care, safety measures, pt is a/ox2 and forgetfulness, unable to use call light for assistance. Cont to monitor pt.
--- NOTE | 2022-03-26 20:20 | NUR ---
Patient will be admitted to care of . Admitted to MEDSURG unit. Will go to room 132A. Belongings list completed. Complete and up to date summary report printed. SBAR report to be given TO AAKASH MALONEY at bedside with opportunity for questions.
[2022-03-26] MEDS ORDERED: POTASSIUM CHLORIDE 20 MEQ TAB.PRT.SR PO ONE (22:15)
[2022-03-26 22:29] VITALS: BP_SYST 154
[2022-03-26] MEDS: cloNIDine HCL 0.1 MG TABLET PO PRN (22:40)
[2022-03-26] MEDS: CARVEDILOL 6.25 MG TABLET (COREG) PO SCH (22:41)
[2022-03-26] MEDS: ALBUTEROL SULFATE 0.083% 2.5 MG/3 ML VIAL.NEB INH SCH (23:14)
--- NOTE | 2022-03-27 | NUR ---
NOTES; ENDORSED TO BI TO CONTINUITY OF CARE -Pt is resting in bed comfortably. NO s/s nonlabored breathing, or any acute distress noted. bed alarmed, side rails x3,call light w/in reach. Endorsed to Fany-RN to continuity of care.
[2022-03-27 00:35] VITALS: BP_SYST 138
[2022-03-27] MEDS: LR 1,000 ML IV SCH ×3 (00:58→21:41)
--- NOTE | 2022-03-27 01:40 | NUR ---
CONSULTATION PAGED/CALLED Reason for Consultation: FECAL IMPACTION Person Who was Notified: COREY Consulting Physician: PERLA Electric Deicer Inspector Specialty: Ordering Physician: ANEESH
[2022-03-27] MEDS: ALBUTEROL SULFATE 0.083% 2.5 MG/3 ML VIAL.NEB INH SCH ×4 (01:47→20:17)
[2022-03-27 04:34] VITALS: BP_SYST 139
[2022-03-27] MEDS: BUDESONIDE 0.5 MG/2 ML AMPUL.NEB INH SCH ×2 (07:30→20:17)
[2022-03-27 07:45] VITALS: BP_SYST 140
--- NOTE | 2022-03-27 07:45 | NUR ---
OPEN NOTE Patient resting in bed. No notable signs of pain, distress or sob. Patient on NC at 2LPM with saturations at 100%. Patient has IV to LAC 20G patent and on SL. Patient speaks czech and is A/O x2 with bouts of confusion. All needs met at this time, bed locked in lowest position, call light within reach, will continue to monitor.
[2022-03-27 08:42] LABS: BASOPHILS % (AUTO) 0.4 % (0.0-2.0); EOSINOPHILS # (AUTO) 0.2 K/uL (0.0-0.4); EOSINOPHILS % (AUTO) 1.9 % (0.0-4.0); HEMATOCRIT 34.3 % (36-48); HEMOGLOBIN 11.6 g/dL (12.0-16.0); LYMPHOCYTES # (AUTO) 1.6 K/uL (1.0-5.5); LYMPHOCYTES % (AUTO) 17.3 % (20.5-51.5); MEAN CORPUSCULAR HEMOGLOBIN 28 pg (27-31); MEAN CORPUSCULAR HGB CONC 34 % (32-36); MEAN CORPUSCULAR VOLUME 83 fL (79.0-98.0); MONOCYTES # (AUTO) 0.9 K/uL (0.0-1.0); MONOCYTES % (AUTO) 10.4 % (1.7-9.3); NEUTROPHILS # (AUTO) 6.3 K/uL (1.8-7.7); PLATELET COUNT (AUTO) 285 K/uL (130-430); RED BLOOD CELL COUNT(AUTO) 4.12 MIL/uL (4.2-6.2); RED CELL DISTRIBUTION WIDTH 14.9 % (9.0-15.0)
[2022-03-27 08:57] LABS: ALANINE AMINOTRANSFERASE 13 U/L (12-78); ALBUMIN 2.6 g/dL (3.4-4.8); ANION GAP 3 (5-15); ASPARTATE AMINOTRANSFERASE 16 U/L (10-37); CALCIUM 8.9 mg/dL (8.4-11.0); CHLORIDE 98 mmol/L (98-107); CREATININE 0.81 mg/dL (0.55-1.30); GLUCOSE 91 mg/dL (70-99); PHOSPHORUS 3.1 mg/dL (2.7-4.5); POTASSIUM 3.4 mmol/L (3.5-5.1); TOTAL BILIRUBIN 0.4 mg/dL (0.0-1.0); UREA NITROGEN, BLOOD 23 mg/dL (8-21)
[2022-03-27] MEDS: POTASSIUM CHLORIDE 20 MEQ TAB.PRT.SR PO SCH (08:57)
[2022-03-27] MEDS: MULTIVITS,CA,MINERALS/IRON/FA 1 TABLET PO SCH (08:57)
[2022-03-27] MEDS: levoFLOXacin 250 MG TABLET PO SCH (08:57)
[2022-03-27] MEDS: FAMOTIDINE 20 MG TABLET PO SCH (08:57)
[2022-03-27] MEDS: LACTOBACILLUS RHAMNOSUS GG 1 CAP CAPSULE PO SCH ×2 (08:57→21:38)
[2022-03-27] MEDS: CARVEDILOL 6.25 MG TABLET (COREG) PO SCH ×2 (08:58→21:38)
[2022-03-27] MEDS: AMIODARONE HCL 200 MG TABLET PO SCH (08:59)
[2022-03-27] MEDS: MEGESTROL ACETATE 400 MG/10 ML UDC PO SCH (08:59)
[2022-03-27] MEDS: ASPIRIN 81 MG TABLET(ECOTRIN) PO SCH (08:59)
[2022-03-27] MEDS ORDERED: [UNRECOGNIZED DRUG - OTHER] PO SCH (09:00)
[2022-03-27] MEDS ORDERED: FLUTICASONE 100 mCg/SALMETEROL 50 mCg DISKUS W.DEV INH SCH (09:00)
[2022-03-27] MEDS ORDERED: IRON PO SCH (09:00)
[2022-03-27] MEDS ORDERED: POTASSIUM CHLORIDE 20 MEQ TAB.PRT.SR PO SCH (11:00)
[2022-03-27] MEDS ORDERED: MAGNESIUM CITRATE 300 ML ORAL SOLUTION PO ONE (11:00)
[2022-03-27 11:30] VITALS: BP_SYST 152
[2022-03-27] MEDS ORDERED: POLYETHYLENE GLYCOL 3350, 17 GM/ POWD.PACK PO ONE (12:15)
[2022-03-27] MEDS ORDERED: MINERAL OIL 30 ML UDC PO ONE (12:15)
[2022-03-27] MEDS ORDERED: DOCUSATE SODIUM 100 MG CAPSULE PO ONE (12:15)
--- NOTE | 2022-03-27 12:20 | NUR ---
PATIENT ROUNDS Patient resting in bed. No notable signs of pain, distress or sob. Patient on NC at 2LPM with saturations at 100%. Patient has IV to LAC 20G patent and on SL. Patient has had two large bowel movements since morning, changed and cleaned. All needs met at this time, bed locked in lowest position, call light within reach, will continue to monitor.
[2022-03-27 15:30] VITALS: BP_SYST 115
--- NOTE | 2022-03-27 16:05 | NUR ---
PATIENT ROUNDS Patient resting in bed. No notable signs of pain, distress or sob. Patient on NC at 2LPM with saturations at 100%. Patient has IV to LAC 20G patent and on SL. All needs met at this time, bed locked in lowest position, call light within reach, will continue to monitor.
[2022-03-27] MEDS: QUEtiapine FUMARATE 25 MG TABLET PO SCH (17:38)
--- NOTE | 2022-03-27 18:51 | NUR ---
CLOSING NOTE Patient resting in bed. No notable signs of pain, distress or sob. Patient on NC at 2LPM with saturations at 100%. Patient has IV to LAC 20G patent and on infusion pump. All needs met at this time, bed locked in lowest position, call light within reach, will endorse to nightshift nurse.
[2022-03-27 21:00] VITALS: BP_SYST 118
[2022-03-27] MEDS: DOCUSATE SODIUM 100 MG CAPSULE PO SCH (21:39)
[2022-03-27] MEDS: MIRTAZAPINE 15 MG TABLET PO SCH (21:40)
--- NOTE | 2022-03-27 21:55 | NUR ---
Hourly Rounding patient awake sips of water po tolerated kept upright position FALL RISK bed alarm is on & working .
[2022-03-28] VITALS (9 sets, daily range): BP systolic 100–182
[2022-03-28] MEDS: ALBUTEROL SULFATE 0.083% 2.5 MG/3 ML VIAL.NEB INH SCH ×4 (03:31→19:26)
--- NOTE | 2022-03-28 03:39 | NUR ---
Reposition & Turning patient kept clean also dry as needed patient awake on and off Respirations Regular also unlabored comfort measures tolerated / .
--- NOTE | 2022-03-28 05:45 | NUR ---
Hourly Rounding patient awake comfort measures implemented no SOB position change tolerated / .
--- NOTE | 2022-03-28 06:30 | NUR ---
CLONIDINE 0.1 MG PO ADMINISTER WITH SIPS OF WATER FOR BP 163/79 HR 78 02 SAT 95 %
[2022-03-28] MEDS: cloNIDine HCL 0.1 MG TABLET PO PRN ×2 (06:31→16:07)
[2022-03-28 07:27] LABS: BASOPHILS % (AUTO) 0.4 % (0.0-2.0); EOSINOPHILS # (AUTO) 0.2 K/uL (0.0-0.4); EOSINOPHILS % (AUTO) 4.4 % (0.0-4.0); HEMOGLOBIN 11.5 g/dL (12.0-16.0); LYMPHOCYTES % (AUTO) 38.4 % (20.5-51.5); MEAN CORPUSCULAR HEMOGLOBIN 28 pg (27-31); MEAN CORPUSCULAR HGB CONC 34 % (32-36); MEAN CORPUSCULAR VOLUME 84 fL (79.0-98.0); MONOCYTES # (AUTO) 0.5 K/uL (0.0-1.0); MONOCYTES % (AUTO) 10.5 % (1.7-9.3); NEUTROPHILS # (AUTO) 2.4 K/uL (1.8-7.7); NEUTROPHILS % (AUTO) 46.3 % (40.0-70.0); PLATELET COUNT (AUTO) 299 K/uL (130-430); RED BLOOD CELL COUNT(AUTO) 4.06 MIL/uL (4.2-6.2); RED CELL DISTRIBUTION WIDTH 15.3 % (9.0-15.0); WHITE BLOOD COUNT (AUTO) 5.2 K/uL (4.8-10.8)
[2022-03-28] MEDS: BUDESONIDE 0.5 MG/2 ML AMPUL.NEB INH SCH ×2 (07:29→19:27)
--- NOTE | 2022-03-28 07:45 | NUR ---
OPEN NOTE Received report from nightshift nurse. Patient resting in bed. No notable signs of pain, distress or sob. BP noted elevated, will give PRN BP medication. Patient on NC at 2LPM with saturations at 100%. Patient has IV to LAC 20G patent and on SL. Patient speaks Canadian and is A/O x2 with bouts of confusion. All needs met at this time, bed locked in lowest position, call light within reach, will continue to monitor.
[2022-03-28 07:51] LABS: ALANINE AMINOTRANSFERASE 4 U/L (12-78); ALBUMIN 2.2 g/dL (3.4-4.8); ANION GAP 4 (5-15); ASPARTATE AMINOTRANSFERASE 14 U/L (10-37); CALCIUM 8.8 mg/dL (8.4-11.0); CHLORIDE 100 mmol/L (98-107); CREATININE 0.71 mg/dL (0.55-1.30); GLUCOSE 78 mg/dL (70-99); POTASSIUM 3.2 mmol/L (3.5-5.1); TOTAL BILIRUBIN 0.2 mg/dL (0.0-1.0); UREA NITROGEN, BLOOD 14 mg/dL (8-21)
[2022-03-28] MEDS: POLYETHYLENE GLYCOL 3350, 17 GM/ POWD.PACK PO SCH (08:04)
[2022-03-28] MEDS: MEGESTROL ACETATE 400 MG/10 ML UDC PO SCH (08:04)
[2022-03-28] MEDS: DOCUSATE SODIUM 100 MG CAPSULE PO SCH ×2 (08:04→21:44)
[2022-03-28] MEDS: LACTOBACILLUS RHAMNOSUS GG 1 CAP CAPSULE PO SCH ×2 (08:04→21:44)
[2022-03-28] MEDS: MINERAL OIL 30 ML UDC PO SCH (08:04)
[2022-03-28] MEDS: ASPIRIN 81 MG TABLET(ECOTRIN) PO SCH (08:05)
[2022-03-28] MEDS: FAMOTIDINE 20 MG TABLET PO SCH (08:05)
[2022-03-28] MEDS: AMIODARONE HCL 200 MG TABLET PO SCH (08:05)
[2022-03-28] MEDS: levoFLOXacin 250 MG TABLET PO SCH (08:05)
[2022-03-28] MEDS: MULTIVITS,CA,MINERALS/IRON/FA 1 TABLET PO SCH (08:05)
[2022-03-28] MEDS: POTASSIUM CHLORIDE 20 MEQ TAB.PRT.SR PO SCH (08:06)
[2022-03-28] MEDS: CARVEDILOL 6.25 MG TABLET (COREG) PO SCH ×2 (08:06→21:45)
--- NOTE | 2022-03-28 10:25 | NUR ---
Family Member call Gave update to patient's .
--- NOTE | 2022-03-28 12:05 | NUR ---
PATIENT ROUNDS Patient resting in bed. No notable signs of pain, distress or sob. Patient on NC at 2LPM with saturations at 100%. Patient has IV to LAC 20G patent and on infusion pump. Patient has had two large bowel movements since morning, changed and cleaned. All needs met at this time, bed locked in lowest position, call light within reach, will continue to monitor.
--- NOTE | 2022-03-28 12:25 | NUR ---
Dietitian Recommendations * Clear liquid diet w/ Ensure Clear TID (provided w/ meals) per MD order * If appropriate, ST evaluation * If/when diet is advanced, suggest regular diet (diet texture per ST as appropriate) to promote PO intake * If/when diet is advanced, provide Ensure Enlive (chocolate) TID per patient request * Per MD order, Remeron and Megace which will help w/ appetite stimulation Please refer to nutrition assessment for details. PS, LEON
--- NOTE | 2022-03-28 16:00 | NUR ---
PATIENT ROUNDS Patient resting in bed. No notable signs of pain, distress or sob. Patient on NC at 2LPM with saturations at 100%. Patient has IV to LAC 20G patent and on infusion pump. All needs met at this time, bed locked in lowest position, call light within reach, will continue to monitor. Addendum: 03/28/22 at 1847 by Jolly Salomon LVN CLONIDINE given due to elevated BP
[2022-03-28] MEDS: QUEtiapine FUMARATE 25 MG TABLET PO SCH (17:26)
--- NOTE | 2022-03-28 21:00 | NUR ---
OPENING NOTES Received report from day nurse. Patient resting in bed with no notable signs of pain, distress or SOB. Patient O2 sat is 98& on room air. Patient has IV to LAC 20G patent and receiving LR at rate of 60. Wrapped IV tubing keep in place. Bed locked in lowest position, call light within reach, will endorse
[2022-03-28] MEDS: MIRTAZAPINE 15 MG TABLET PO SCH (21:44)
[2022-03-29] MEDS: LR 1,000 ML IV SCH ×2 (01:33→17:47)
[2022-03-29 01:51] VITALS: BP_SYST 147
[2022-03-29] MEDS: ALBUTEROL SULFATE 0.083% 2.5 MG/3 ML VIAL.NEB INH SCH ×4 (02:03→19:09)
[2022-03-29] MEDS: BUDESONIDE 0.5 MG/2 ML AMPUL.NEB INH SCH ×2 (07:29→19:08)
--- NOTE | 2022-03-29 07:38 | NUR ---
MORNING ROUNDS: PATIENT AWAKE LYING ON THE BED. O2 2-3L/MIN.NO COMPLAINED MADE. CALL LIGHT WITH IN REACH. BED LOCKED AT LOWEST POSITION. NO ACUTE DISTRESS.
[2022-03-29 08:15] VITALS: BP_SYST 168
[2022-03-29] MEDS: FAMOTIDINE 20 MG TABLET PO SCH (08:38)
[2022-03-29] MEDS: CARVEDILOL 6.25 MG TABLET (COREG) PO SCH ×2 (08:38→20:24)
[2022-03-29] MEDS: DOCUSATE SODIUM 100 MG CAPSULE PO SCH ×2 (08:38→20:24)
[2022-03-29] MEDS: levoFLOXacin 250 MG TABLET PO SCH (08:38)
[2022-03-29] MEDS: ASPIRIN 81 MG TABLET(ECOTRIN) PO SCH (08:38)
[2022-03-29] MEDS: MULTIVITS,CA,MINERALS/IRON/FA 1 TABLET PO SCH (08:38)
[2022-03-29] MEDS: AMIODARONE HCL 200 MG TABLET PO SCH (08:39)
[2022-03-29] MEDS: MEGESTROL ACETATE 400 MG/10 ML UDC PO SCH (08:39)
[2022-03-29] MEDS: POLYETHYLENE GLYCOL 3350, 17 GM/ POWD.PACK PO SCH (08:39)
[2022-03-29] MEDS: POTASSIUM CHLORIDE 20 MEQ TAB.PRT.SR PO SCH ×2 (08:39→20:24)
[2022-03-29] MEDS: LACTOBACILLUS RHAMNOSUS GG 1 CAP CAPSULE PO SCH ×2 (08:39→20:24)
[2022-03-29] MEDS: MINERAL OIL 30 ML UDC PO SCH (08:39)
--- NOTE | 2022-03-29 11:00 | NUR ---
RN ROUNDS: RESTING. NO ACUTE DISTRESS.
[2022-03-29 12:34] VITALS: BP_SYST 149
--- NOTE | 2022-03-29 13:30 | NUR ---
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
[2022-03-29 16:20] VITALS: BP_SYST 140
[2022-03-29] MEDS ORDERED: Mineral Oil 30 Ml Po PO (17:38)
[2022-03-29] MEDS ORDERED: Potassium Chloride PO (17:38)
[2022-03-29] MEDS ORDERED: DOCU-144 PO (17:38)
[2022-03-29] MEDS: QUEtiapine FUMARATE 25 MG TABLET PO SCH (17:48)
--- NOTE | 2022-03-29 18:12 | NUR ---
DINNER SERVED: NEW DIET ORDER.CHANGED TO MECHANICAL SOFT PER DR MELENDREZ. DINNER SERVED.
--- NOTE | 2022-03-29 18:25 | NUR ---
EVENING ROUNDS: PATIENT HAVING DINNER. CONTINUE IV FLUIDS ORDERED.CALL LIGHT WITH IN REACH. BED LOCKED AT LOWEST POSITION. MAINTAINED O2 TO 2L/NC,GOOD SATURATION.
--- NOTE | 2022-03-29 19:20 | NUR ---
Received report from AAKASH [place] and assumed patient care.
[2022-03-29 20:00] VITALS: BP_SYST 147
[2022-03-29] MEDS: MUPIROCIN 2% TOPICAL OINTMENT 22 GM NS SCH (20:24)
[2022-03-29] MEDS: MIRTAZAPINE 15 MG TABLET PO SCH (20:24)
[2022-03-29] MEDS ORDERED: MUPIROCIN 1 GM OIN.PF.APP NS SCH (21:00)
--- NOTE | 2022-03-29 21:00 | NUR ---
Educated the patient about the plan of care, and the use of call light. Patient understood the education and had no questions noted at the moment. Medications were given (please see emar) without complications. Bed is in lowest position, call light within reach, and will reinforce if needed throughout the shift.
--- NOTE | 2022-03-29 23:50 | NUR ---
Patient had a bowel movement, cleaned patient up, changed linens, patient was able to assist in turns. No complications noted at the moment, will reinforce if needed throughout the shift.
[2022-03-30] VITALS (9 sets, daily range): BP systolic 116–179
--- NOTE | 2022-03-30 00:45 | NUR ---
Patient's BP is elevated (please see vital signs for further details), patient states she is not in pain, and states that she is nervous and tired from the turns after cleaning up bowel movement. Instructed patient to take deep breaths, and to try to relax by distraction of watching TV. Checked BP again, and it is ranging from 170-180s. Will give PRN PO medications, and retry BP again and will call if does not do down below goal of 160.
[2022-03-30] MEDS: cloNIDine HCL 0.1 MG TABLET PO PRN (00:52)
[2022-03-30] MEDS: ALBUTEROL SULFATE 0.083% 2.5 MG/3 ML VIAL.NEB INH SCH ×4 (00:53→19:35)
--- NOTE | 2022-03-30 01:58 | NUR ---
SBP is now 116/60, patient expresses relief of lower BP. No additional complications noted at the moment, will reinforce if needed throughout the shift.
--- NOTE | 2022-03-30 04:00 | NUR ---
Vital signs were performed, BP is within patient's range (please see vital signs for further details). Patient is sleeping, no complications noted or questions noted at the moment, will reinforce if needed throughout the shift.
[2022-03-30 06:48] LABS: BASOPHILS % (AUTO) 0.4 % (0.0-2.0); EOSINOPHILS # (AUTO) 0.2 K/uL (0.0-0.4); HEMATOCRIT 31.2 % (36-48); HEMOGLOBIN 10.5 g/dL (12.0-16.0); LYMPHOCYTES # (AUTO) 1.8 K/uL (1.0-5.5); LYMPHOCYTES % (AUTO) 25.5 % (20.5-51.5); MEAN CORPUSCULAR HEMOGLOBIN 28 pg (27-31); MEAN CORPUSCULAR HGB CONC 34 % (32-36); MEAN CORPUSCULAR VOLUME 84 fL (79.0-98.0); MONOCYTES # (AUTO) 0.6 K/uL (0.0-1.0); MONOCYTES % (AUTO) 8.5 % (1.7-9.3); NEUTROPHILS # (AUTO) 4.4 K/uL (1.8-7.7); NEUTROPHILS % (AUTO) 62.6 % (40.0-70.0); PLATELET COUNT (AUTO) 293 K/uL (130-430); RED BLOOD CELL COUNT(AUTO) 3.71 MIL/uL (4.2-6.2); RED CELL DISTRIBUTION WIDTH 15.2 % (9.0-15.0)
[2022-03-30] MEDS: BUDESONIDE 0.5 MG/2 ML AMPUL.NEB INH SCH ×2 (07:30→19:36)
--- NOTE | 2022-03-30 07:30 | NUR ---
Morning Rounds: Patient on the bed awake,alert and oriented x4. Iv fluids running at left forearm intact. Call light with in reach. Bed locked at lowest position. Bed alarm on. Denies any pain. No acute distress.Contact isolation precaution rendered.
[2022-03-30 07:40] LABS: ALANINE AMINOTRANSFERASE 10 U/L (12-78); ANION GAP 3 (5-15); ASPARTATE AMINOTRANSFERASE 12 U/L (10-37); CALCIUM 8.4 mg/dL (8.4-11.0); CHLORIDE 105 mmol/L (98-107); CREATININE 0.87 mg/dL (0.55-1.30); GLUCOSE 87 mg/dL (70-99); TOTAL BILIRUBIN 0.3 mg/dL (0.0-1.0); UREA NITROGEN, BLOOD 6 mg/dL (8-21)
[2022-03-30] MEDS: MEGESTROL ACETATE 400 MG/10 ML UDC PO SCH (09:25)
[2022-03-30] MEDS: FAMOTIDINE 20 MG TABLET PO SCH (09:27)
[2022-03-30] MEDS: MINERAL OIL 30 ML UDC PO SCH (09:28)
[2022-03-30] MEDS: ASPIRIN 81 MG TABLET(ECOTRIN) PO SCH (09:28)
[2022-03-30] MEDS: LACTOBACILLUS RHAMNOSUS GG 1 CAP CAPSULE PO SCH (09:28)
[2022-03-30] MEDS: AMIODARONE HCL 200 MG TABLET PO SCH (09:28)
[2022-03-30] MEDS: MUPIROCIN 2% TOPICAL OINTMENT 22 GM NS SCH (09:28)
[2022-03-30] MEDS: levoFLOXacin 250 MG TABLET PO SCH (09:28)
[2022-03-30] MEDS: MULTIVITS,CA,MINERALS/IRON/FA 1 TABLET PO SCH (09:29)
[2022-03-30] MEDS: DOCUSATE SODIUM 100 MG CAPSULE PO SCH (09:29)
[2022-03-30] MEDS: POLYETHYLENE GLYCOL 3350, 17 GM/ POWD.PACK PO SCH (09:29)
[2022-03-30] MEDS: CARVEDILOL 6.25 MG TABLET (COREG) PO SCH (09:29)
[2022-03-30] MEDS: POTASSIUM CHLORIDE 20 MEQ TAB.PRT.SR PO SCH (09:29)
--- NOTE | 2022-03-30 09:30 | NUR ---
PO MEDS: PATIENT TOLERATED ALL HER PO MEDS WELL.NO PROBLEM.
--- NOTE | 2022-03-30 09:57 | NUR ---
Discharge Planning: RAFAELA faxed pt referral to [facility] [phone] RAFAELA to follow. Addendum: 03/30/22 at 1331 by Linda Horner DP RAFAELA received call from [facility] [phone] patient is on service with Shamar PURCELL. RAFAELA explained pt did not wamt Shamar HAGEN told patient health care assistant a must be made to cancel before another home health can accept.
[2022-03-30] MEDS ORDERED: CEPH250C PO (13:47)
--- NOTE | 2022-03-30 14:34 | NUR ---
Spoke to patient and her . Rip, they agreed to SNF placement at [facility].
[2022-03-30] MEDS ORDERED: cefTRIAXone 1 GM in D5W 50 ML IV SCH (15:00)
--- NOTE | 2022-03-30 16:53 | NUR ---
Patient accepted at [facility] room 48A. Number for report is [phone]. Ambulance transport is by [facility] [phone] at 7PM. discharge disposition is 03
[2022-03-30] MEDS: QUEtiapine FUMARATE 25 MG TABLET PO SCH (18:18)
--- NOTE | 2022-03-30 18:56 | NUR ---
Report: Report given to Cristin Rocha nursing farm management supervisor from [facility].
--- NOTE | 2022-03-30 19:05 | NUR ---
Called patient's : Spoke with Rip Lopez and informed him patient will be transferred to [facility] and agreeable for transfer.
--- NOTE | 2022-03-30 19:30 | NUR ---
End of Shift: Endorsed to night nurse Charlotte ,patient will be transfer to [facility]. Ambulance was called for follow up,delayed due to Er saturation. Safety measures rendered. Call light with in reach. No acute distress.
--- NOTE | 2022-03-30 20:55 | NUR ---
D/C Patient [facility] here. DC packet given to EMT. Exit Care provided. Patient verbalized understanding. MD discussed with patient the results and treatment provided. Patient in stable condition, ID band removed. IV catheter L.AC 20G intact, good blood return. Pt to have IV antibiotic Rocephin for 7 days. DC to [facility]. Patient educated on pain management. All belongings sent with patient.
[2022-03-30] MEDS ORDERED: MIRTAZAPINE 15 MG TABLET PO SCH (21:00)
--- NOTE | 2022-03-30 21:26 | NUR ---
[facility] called [facility] regarding tele box letting them know if they can send tele box back with [facility] they said pt has not arrived yet.. i ran after them but they already left the parking lot.. charge nurse aware Addendum: 03/30/22 at 2132 by Katelynn Smallwood CNA cancel found box
--- NOTE | 2022-03-30 21:52 | NUR ---
Spoke w/ pt's Rip [phone] and updated with Transfer.
== END 2022-03-30 20:20 | DRG 388 ==
LOC: SED 11:57 → SMU 16:38 → STU 23:01 → SMU 03-30 16:06
PROVIDERS: ADMIT Internal Medicine; ATTEND Internal Medicine
DX: K56.41 Fecal impaction (principal); E43 Unspecified severe protein-calorie malnutrition; N39.0 Urinary tract infection, site not specified; Z68.1 Body mass index [BMI] 19.9 or less, adult; E87.6 Hypokalemia; E86.0 Dehydration; R62.7 Adult failure to thrive; Z20.822 Contact with and (suspected) exposure to COVID-19; I10 Essential (primary) hypertension; J44.9 Chronic obstructive pulmonary disease, unspecified; E78.5 Hyperlipidemia, unspecified; I25.10 Atherosclerotic heart disease of native coronary artery without angina pectoris; F32.A Depression, unspecified; F41.9 Anxiety disorder, unspecified; G20 Parkinson's disease; F02.80 Dementia in other diseases classified elsewhere, unspecified severity, without behavioral disturbance, psychotic disturbance, mood disturbance, and anxiety; D63.8 Anemia in other chronic diseases classified elsewhere; Z86.73 Personal history of transient ischemic attack (TIA), and cerebral infarction without residual deficits; Z87.891 Personal history of nicotine dependence; Z90.710 Acquired absence of both cervix and uterus; Z88.0 Allergy status to penicillin; Z88.2 Allergy status to sulfonamides
CPT/HCPCS: 36415; 36600; 74018; 76376; 80053; 81000; 82803-TC; 83690; 83735; 84100; 85025; 85651-TC; 87081; 87086; 94640; 94760; 96365; 96366; 97116-GP; 97530-GP; 99285; G0378; J0696; J3480; J7060; J7613; J7626

== ENCOUNTER 2022-06-11 12:53 | Inpatient (IN) | payer OTHER ==
[~2022-06-11] VITALS: Ht 152.4 cm; Wt 49.4 kg
[~2022-06-11 12:53] MED LIST changes: +CEPH250C PO; +DOCU-144 PO; -LEVO250T73 PO; +Mineral Oil 30 Ml Po PO
[2022-06-11 13:00] VITALS: BP_SYST 128
[2022-06-11 15:23] LABS: BASOPHILS % (AUTO) 0.6 % (0.0-2.0); EOSINOPHILS % (AUTO) 0.2 % (0.0-4.0); HEMATOCRIT 32.4 % (36-48); HEMOGLOBIN 10.9 g/dL (12.0-16.0); LYMPHOCYTES # (AUTO) 0.8 K/uL (1.0-5.5); LYMPHOCYTES % (AUTO) 11.2 % (20.5-51.5); MEAN CORPUSCULAR HEMOGLOBIN 30 pg (27-31); MEAN CORPUSCULAR HGB CONC 34 % (32-36); MEAN CORPUSCULAR VOLUME 89 fL (79.0-98.0); MONOCYTES # (AUTO) 0.8 K/uL (0.0-1.0); MONOCYTES % (AUTO) 10.6 % (1.7-9.3); NEUTROPHILS # (AUTO) 5.8 K/uL (1.8-7.7); NEUTROPHILS % (AUTO) 77.4 % (40.0-70.0); PLATELET COUNT (AUTO) 303 K/uL (130-430); RED BLOOD CELL COUNT(AUTO) 3.64 MIL/uL (4.2-6.2); RED CELL DISTRIBUTION WIDTH 16.7 % (9.0-15.0); WHITE BLOOD COUNT (AUTO) 7.4 K/uL (4.8-10.8)
[2022-06-11 16:02] LABS: ANION GAP 6 (5-15); CALCIUM 8.4 mg/dL (8.4-11.0); CHLORIDE 101 mmol/L (98-107); CREATININE 0.54 mg/dL (0.55-1.30); GLUCOSE 87 mg/dL (70-99); UREA NITROGEN, BLOOD 14 mg/dL (8-21)
[2022-06-11] MEDS ORDERED: AZITHROMYCIN 500 MG in NS 250 ML IV ONE (16:15)
[2022-06-11 16:18] LABS: ALANINE AMINOTRANSFERASE 31 U/L (12-78); ALBUMIN 3.1 g/dL (3.4-4.8); ASPARTATE AMINOTRANSFERASE 24 U/L (10-37); TOTAL BILIRUBIN 0.3 mg/dL (0.0-1.0)
[2022-06-11] MEDS ORDERED: ALBUTEROL MDI INHALATION 8 GM INH INH SCH (17:00)
[2022-06-11] MEDS ORDERED: DEXAMETHASONE SOD PHOSPHATE 10 MG/ML VIAL IVP ONE (17:00)
[2022-06-11] MEDS ORDERED: AZITHROMYCIN 500 MG/VIAL (ZITHROMAX) IV ONE ×2 (17:59→18:23)
[2022-06-11] MEDS: QUEtiapine FUMARATE 25 MG TABLET PO SCH (18:28)
[2022-06-11] MEDS: BUDESONIDE 0.5 MG/2 ML AMPUL.NEB INH SCH (19:00)
[2022-06-11] MEDS: ALBUTEROL MDI INHALATION 8 GM INH INH SCH (19:00)
[2022-06-11] MEDS: CARVEDILOL 6.25 MG TABLET (COREG) PO SCH (21:32)
[2022-06-11] MEDS: DOCUSATE SODIUM 100 MG CAPSULE PO SCH (21:32)
[2022-06-11] MEDS: LACTOBACILLUS RHAMNOSUS GG 1 CAP CAPSULE PO SCH (21:33)
[2022-06-11] MEDS: ENOXAPARIN SODIUM 40 MG/0.4 ML SYRINGE SUBCUT SCH (21:35)
[2022-06-11] MEDS: MAGNESIUM OXIDE 400 MG TABLET PO SCH (21:36)
[2022-06-11] MEDS: CHOLECALCIFEROL (VITAMIN D3) 2,000 UNIT TABLET PO SCH (21:36)
[2022-06-11] MEDS: MIRTAZAPINE 15 MG TABLET PO SCH (21:36)
[2022-06-11] MEDS: ASCORBIC ACID 500 MG TABLET PO SCH (21:36)
[2022-06-12 08:34] LABS: BASOPHILS % (AUTO) 0.2 % (0.0-2.0); HEMATOCRIT 34.6 % (36-48); HEMOGLOBIN 11.5 g/dL (12.0-16.0); LYMPHOCYTES # (AUTO) 0.6 K/uL (1.0-5.5); LYMPHOCYTES % (AUTO) 10.2 % (20.5-51.5); MEAN CORPUSCULAR HEMOGLOBIN 29 pg (27-31); MEAN CORPUSCULAR HGB CONC 33 % (32-36); MEAN CORPUSCULAR VOLUME 88 fL (79.0-98.0); MONOCYTES # (AUTO) 0.3 K/uL (0.0-1.0); MONOCYTES % (AUTO) 5.1 % (1.7-9.3); NEUTROPHILS # (AUTO) 5.1 K/uL (1.8-7.7); NEUTROPHILS % (AUTO) 84.5 % (40.0-70.0); PLATELET COUNT (AUTO) 333 K/uL (130-430); RED BLOOD CELL COUNT(AUTO) 3.91 MIL/uL (4.2-6.2); RED CELL DISTRIBUTION WIDTH 16.3 % (9.0-15.0)
[2022-06-12] MEDS: BUDESONIDE 0.5 MG/2 ML AMPUL.NEB INH SCH (08:38)
[2022-06-12] MEDS: ALBUTEROL MDI INHALATION 8 GM INH INH SCH ×3 (08:38→15:49)
[2022-06-12] MEDS: DEXAMETHASONE SOD PHOSPHATE 10 MG/ML VIAL IVP SCH (09:00)
[2022-06-12] MEDS: MEGESTROL ACETATE 400 MG/10 ML UDC PO SCH (09:00)
[2022-06-12] MEDS: FAMOTIDINE 20 MG TABLET PO SCH (09:00)
[2022-06-12] MEDS: ASPIRIN 81 MG TABLET(ECOTRIN) PO SCH (09:00)
[2022-06-12] MEDS: MULTIVITS,CA,MINERALS/IRON/FA 1 TABLET PO SCH (09:00)
[2022-06-12] MEDS: AMIODARONE HCL 200 MG TABLET PO SCH (09:00)
[2022-06-12 09:36] LABS: ALANINE AMINOTRANSFERASE 27 U/L (12-78); ALBUMIN 2.8 g/dL (3.4-4.8); ANION GAP 6 (5-15); ASPARTATE AMINOTRANSFERASE 24 U/L (10-37); CALCIUM 8.8 mg/dL (8.4-11.0); CHLORIDE 100 mmol/L (98-107); CREATININE 0.81 mg/dL (0.55-1.30); GLUCOSE 88 mg/dL (70-99); TOTAL BILIRUBIN 0.3 mg/dL (0.0-1.0); UREA NITROGEN, BLOOD 18 mg/dL (8-21)
[2022-06-12] MEDS ORDERED: CARVEDILOL 6.25 MG TABLET (COREG) ONE (16:21)
[2022-06-12] MEDS: CARVEDILOL 6.25 MG TABLET (COREG) PO SCH ×2 (16:23→21:53)
[2022-06-12] MEDS: LACTOBACILLUS RHAMNOSUS GG 1 CAP CAPSULE PO SCH ×2 (17:13→21:53)
[2022-06-12] MEDS: DOCUSATE SODIUM 100 MG CAPSULE PO SCH ×2 (17:13→21:53)
[2022-06-12] MEDS: MAGNESIUM OXIDE 400 MG TABLET PO SCH ×2 (17:14→21:53)
[2022-06-12] MEDS: ASCORBIC ACID 500 MG TABLET PO SCH ×2 (17:15→21:54)
[2022-06-12] MEDS: CHOLECALCIFEROL (VITAMIN D3) 2,000 UNIT TABLET PO SCH ×2 (17:15→21:54)
[2022-06-12] MEDS: QUEtiapine FUMARATE 25 MG TABLET PO SCH (18:00)
[2022-06-12] MEDS: MIRTAZAPINE 15 MG TABLET PO SCH (21:53)
[2022-06-12] MEDS: ENOXAPARIN SODIUM 40 MG/0.4 ML SYRINGE SUBCUT SCH (21:54)
[2022-06-12 23:15] VITALS: BP_SYST 138
[2022-06-13] VITALS: BP_SYST 138
[2022-06-13 07:20] LABS: BASOPHILS % (AUTO) 0.1 % (0.0-2.0); HEMATOCRIT 31.6 % (36-48); HEMOGLOBIN 10.8 g/dL (12.0-16.0); LYMPHOCYTES # (AUTO) 0.7 K/uL (1.0-5.5); LYMPHOCYTES % (AUTO) 12.6 % (20.5-51.5); MEAN CORPUSCULAR HEMOGLOBIN 30 pg (27-31); MEAN CORPUSCULAR HGB CONC 34 % (32-36); MEAN CORPUSCULAR VOLUME 87 fL (79.0-98.0); MONOCYTES # (AUTO) 0.4 K/uL (0.0-1.0); MONOCYTES % (AUTO) 7.1 % (1.7-9.3); NEUTROPHILS # (AUTO) 4.4 K/uL (1.8-7.7); NEUTROPHILS % (AUTO) 80.2 % (40.0-70.0); PLATELET COUNT (AUTO) 324 K/uL (130-430); RED BLOOD CELL COUNT(AUTO) 3.62 MIL/uL (4.2-6.2); RED CELL DISTRIBUTION WIDTH 16.9 % (9.0-15.0); WHITE BLOOD COUNT (AUTO) 5.5 K/uL (4.8-10.8)
[2022-06-13 07:27] LABS: ANION GAP 5 (5-15); CALCIUM 8.3 mg/dL (8.4-11.0); CHLORIDE 103 mmol/L (98-107); CREATININE 0.71 mg/dL (0.55-1.30); GLUCOSE 110 mg/dL (70-99); UREA NITROGEN, BLOOD 23 mg/dL (8-21)
[2022-06-13] MEDS: ALBUTEROL MDI INHALATION 8 GM INH INH SCH ×3 (07:45→17:28)
[2022-06-13] MEDS: BUDESONIDE 0.5 MG/2 ML AMPUL.NEB INH SCH (07:45)
[2022-06-13] MEDS: MAGNESIUM OXIDE 400 MG TABLET PO SCH ×2 (10:53→21:38)
[2022-06-13] MEDS: DEXAMETHASONE SOD PHOSPHATE 10 MG/ML VIAL IVP SCH (10:53)
[2022-06-13] MEDS: ASCORBIC ACID 500 MG TABLET PO SCH ×2 (10:53→21:38)
[2022-06-13] MEDS: CHOLECALCIFEROL (VITAMIN D3) 2,000 UNIT TABLET PO SCH ×2 (10:53→21:38)
[2022-06-13] MEDS: LACTOBACILLUS RHAMNOSUS GG 1 CAP CAPSULE PO SCH ×2 (10:53→21:37)
[2022-06-13] MEDS: FAMOTIDINE 20 MG TABLET PO SCH (10:54)
[2022-06-13] MEDS: AMIODARONE HCL 200 MG TABLET PO SCH (10:54)
[2022-06-13] MEDS: MULTIVITS,CA,MINERALS/IRON/FA 1 TABLET PO SCH (10:54)
[2022-06-13] MEDS: MEGESTROL ACETATE 400 MG/10 ML UDC PO SCH (10:54)
[2022-06-13] MEDS: ASPIRIN 81 MG TABLET(ECOTRIN) PO SCH (10:54)
[2022-06-13] MEDS: DOCUSATE SODIUM 100 MG CAPSULE PO SCH ×2 (10:55→21:37)
[2022-06-13] MEDS: CARVEDILOL 6.25 MG TABLET (COREG) PO SCH ×2 (10:55→21:40)
[2022-06-13 12:00] VITALS: BP_SYST 148
[2022-06-13 16:00] VITALS: BP_SYST 92
[2022-06-13] MEDS ORDERED: guaiFENesin/DEXTROMETHORPHAN 10 ML UDC PO ONE (16:45)
[2022-06-13] MEDS: QUEtiapine FUMARATE 25 MG TABLET PO SCH (17:43)
[2022-06-13 19:00] VITALS: BP_SYST 142
[2022-06-13 20:00] VITALS: BP_SYST 142
[2022-06-13] MEDS: MIRTAZAPINE 15 MG TABLET PO SCH (21:38)
[2022-06-13] MEDS: ENOXAPARIN SODIUM 40 MG/0.4 ML SYRINGE SUBCUT SCH (21:39)
[2022-06-14] VITALS: BP_SYST 138
[2022-06-14] MEDS ORDERED: LEVOFLOXACIN 250 MG/D5W 50 ML IV ONE (05:21)
[2022-06-14] MEDS: LEVOFLOXACIN 250 MG/D5W 50 ML IV SCH (05:28)
[2022-06-14] MEDS: guaiFENesin/DEXTROMETHORPHAN 10 ML UDC PO PRN ×2 (05:54→22:20)
[2022-06-14] MEDS: BUDESONIDE 0.5 MG/2 ML AMPUL.NEB INH SCH ×2 (07:00→19:49)
[2022-06-14] MEDS: ALBUTEROL MDI INHALATION 8 GM INH INH SCH ×4 (07:00→19:49)
[2022-06-14 08:00] VITALS: BP_SYST 179
[2022-06-14 08:36] LABS: BASOPHILS % (AUTO) 0.2 % (0.0-2.0); HEMATOCRIT 31.8 % (36-48); HEMOGLOBIN 10.8 g/dL (12.0-16.0); LYMPHOCYTES # (AUTO) 1.5 K/uL (1.0-5.5); LYMPHOCYTES % (AUTO) 22.6 % (20.5-51.5); MEAN CORPUSCULAR HEMOGLOBIN 30 pg (27-31); MEAN CORPUSCULAR HGB CONC 34 % (32-36); MEAN CORPUSCULAR VOLUME 88 fL (79.0-98.0); MONOCYTES # (AUTO) 0.8 K/uL (0.0-1.0); MONOCYTES % (AUTO) 12.5 % (1.7-9.3); NEUTROPHILS # (AUTO) 4.2 K/uL (1.8-7.7); NEUTROPHILS % (AUTO) 64.7 % (40.0-70.0); PLATELET COUNT (AUTO) 313 K/uL (130-430); RED CELL DISTRIBUTION WIDTH 16.8 % (9.0-15.0); WHITE BLOOD COUNT (AUTO) 6.5 K/uL (4.8-10.8)
[2022-06-14 08:59] LABS: ANION GAP 2 (5-15); CALCIUM 8.4 mg/dL (8.4-11.0); CHLORIDE 104 mmol/L (98-107); GLUCOSE 84 mg/dL (70-99); UREA NITROGEN, BLOOD 24 mg/dL (8-21)
[2022-06-14] MEDS ORDERED: MULTIVITS,CA,MINERALS/IRON/FA 1 TABLET PO SCH (09:00)
[2022-06-14] MEDS: MAGNESIUM OXIDE 400 MG TABLET PO SCH ×2 (12:12→22:21)
[2022-06-14] MEDS: MEGESTROL ACETATE 400 MG/10 ML UDC PO SCH (12:12)
[2022-06-14] MEDS: CHOLECALCIFEROL (VITAMIN D3) 2,000 UNIT TABLET PO SCH ×2 (12:12→22:20)
[2022-06-14] MEDS: ASCORBIC ACID 500 MG TABLET PO SCH ×2 (12:12→22:20)
[2022-06-14] MEDS: DOCUSATE SODIUM 100 MG CAPSULE PO SCH ×2 (12:13→22:20)
[2022-06-14] MEDS: AMIODARONE HCL 200 MG TABLET PO SCH (12:13)
[2022-06-14 12:14] VITALS: BP_SYST 173
[2022-06-14] MEDS: DEXAMETHASONE SOD PHOSPHATE 10 MG/ML VIAL IVP SCH (12:14)
[2022-06-14] MEDS: ASPIRIN 81 MG TABLET(ECOTRIN) PO SCH (12:14)
[2022-06-14] MEDS: LACTOBACILLUS RHAMNOSUS GG 1 CAP CAPSULE PO SCH ×2 (12:14→22:20)
[2022-06-14] MEDS: FAMOTIDINE 20 MG TABLET PO SCH (12:15)
[2022-06-14] MEDS: MULTIVITS,CA,MINERALS/IRON/FA 1 TABLET PO SCH (12:22)
[2022-06-14] MEDS: CARVEDILOL 6.25 MG TABLET (COREG) PO SCH ×2 (13:25→22:24)
[2022-06-14] MEDS ORDERED: cloNIDine HCL 0.1 MG TABLET PO PRN (16:30)
[2022-06-14 17:41] VITALS: BP_SYST 150
[2022-06-14] MEDS: QUEtiapine FUMARATE 25 MG TABLET PO SCH (18:25)
[2022-06-14 21:00] VITALS: BP_SYST 144
[2022-06-14] MEDS: ENOXAPARIN SODIUM 40 MG/0.4 ML SYRINGE SUBCUT SCH (22:19)
[2022-06-14] MEDS: MIRTAZAPINE 15 MG TABLET PO SCH (22:20)
[2022-06-14] MEDS: metroNIDAZOLE 250 mg/NS 50 ML IV SCH (22:20)
[2022-06-15 00:54] VITALS: BP_SYST 148
[2022-06-15] MEDS: LEVOFLOXACIN 250 MG/D5W 50 ML IV SCH (06:29)
[2022-06-15] MEDS: metroNIDAZOLE 250 mg/NS 50 ML IV SCH ×3 (06:29→22:49)
[2022-06-15] MEDS: BUDESONIDE 0.5 MG/2 ML AMPUL.NEB INH SCH ×2 (07:00→19:00)
[2022-06-15 07:14] LABS: BASOPHILS % (AUTO) 0.3 % (0.0-2.0); HEMATOCRIT 30.9 % (36-48); HEMOGLOBIN 10.6 g/dL (12.0-16.0); LYMPHOCYTES # (AUTO) 1.1 K/uL (1.0-5.5); LYMPHOCYTES % (AUTO) 22.4 % (20.5-51.5); MEAN CORPUSCULAR HEMOGLOBIN 30 pg (27-31); MEAN CORPUSCULAR HGB CONC 34 % (32-36); MEAN CORPUSCULAR VOLUME 88 fL (79.0-98.0); MONOCYTES # (AUTO) 0.6 K/uL (0.0-1.0); MONOCYTES % (AUTO) 12.3 % (1.7-9.3); NEUTROPHILS # (AUTO) 3.3 K/uL (1.8-7.7); PLATELET COUNT (AUTO) 299 K/uL (130-430); RED BLOOD CELL COUNT(AUTO) 3.52 MIL/uL (4.2-6.2); RED CELL DISTRIBUTION WIDTH 16.3 % (9.0-15.0); WHITE BLOOD COUNT (AUTO) 5.1 K/uL (4.8-10.8)
[2022-06-15 07:40] LABS: ANION GAP 4 (5-15); CALCIUM 8.1 mg/dL (8.4-11.0); CHLORIDE 101 mmol/L (98-107); CREATININE 0.56 mg/dL (0.55-1.30); GLUCOSE 93 mg/dL (70-99); PHOSPHORUS 2.6 mg/dL (2.7-4.5); UREA NITROGEN, BLOOD 21 mg/dL (8-21)
[2022-06-15] MEDS: ALBUTEROL MDI INHALATION 8 GM INH INH SCH ×4 (07:48→20:04)
[2022-06-15 08:00] VITALS: BP_SYST 130; BP_SYST 159
[2022-06-15 08:40] VITALS: BP_SYST 148
[2022-06-15 11:19] VITALS: BP_SYST 165
[2022-06-15] MEDS: MEGESTROL ACETATE 400 MG/10 ML UDC PO SCH (11:23)
[2022-06-15] MEDS: DOCUSATE SODIUM 100 MG CAPSULE PO SCH (11:25)
[2022-06-15] MEDS: MULTIVITS,CA,MINERALS/IRON/FA 1 TABLET PO SCH (11:25)
[2022-06-15] MEDS: ASCORBIC ACID 500 MG TABLET PO SCH ×2 (11:25→22:50)
[2022-06-15] MEDS: AMIODARONE HCL 200 MG TABLET PO SCH (11:25)
[2022-06-15] MEDS: CHOLECALCIFEROL (VITAMIN D3) 2,000 UNIT TABLET PO SCH ×2 (11:25→22:50)
[2022-06-15] MEDS: CARVEDILOL 6.25 MG TABLET (COREG) PO SCH ×2 (11:26→22:55)
[2022-06-15] MEDS: FAMOTIDINE 20 MG TABLET PO SCH (11:27)
[2022-06-15] MEDS: LACTOBACILLUS RHAMNOSUS GG 1 CAP CAPSULE PO SCH ×2 (11:27→22:49)
[2022-06-15] MEDS: ASPIRIN 81 MG TABLET(ECOTRIN) PO SCH (11:27)
[2022-06-15] MEDS: MAGNESIUM OXIDE 400 MG TABLET PO SCH ×2 (11:27→22:51)
[2022-06-15] MEDS ORDERED: BISACODYL 10 MG/SUPPOSITORY RC PRN (11:30)
[2022-06-15] MEDS ORDERED: DOCUSATE SODIUM 250 MG CAPSULE PO ONE (12:00)
[2022-06-15] MEDS ORDERED: BISACODYL 5 MG TABLET.DR (DULCOLAX) PO ONE (12:00)
[2022-06-15 16:06] VITALS: BP_SYST 153
[2022-06-15] MEDS: QUEtiapine FUMARATE 25 MG TABLET PO SCH (17:54)
[2022-06-15] MEDS: ENOXAPARIN SODIUM 40 MG/0.4 ML SYRINGE SUBCUT SCH (22:49)
[2022-06-15] MEDS: MIRTAZAPINE 15 MG TABLET PO SCH (22:50)
[2022-06-15] MEDS: DOCUSATE SODIUM 250 MG CAPSULE PO SCH (22:50)
[2022-06-16 00:15] VITALS: BP_SYST 135
[2022-06-16] MEDS: metroNIDAZOLE 250 mg/NS 50 ML IV SCH ×2 (05:17→13:23)
[2022-06-16] MEDS: LEVOFLOXACIN 250 MG/D5W 50 ML IV SCH (05:17)
[2022-06-16] MEDS: BUDESONIDE 0.5 MG/2 ML AMPUL.NEB INH SCH (07:00)
[2022-06-16] MEDS: ALBUTEROL MDI INHALATION 8 GM INH INH SCH ×3 (08:04→15:53)
[2022-06-16] MEDS ORDERED: DECADRON 4 MG TABLET PO SCH (09:00)
[2022-06-16] MEDS: CARVEDILOL 6.25 MG TABLET (COREG) PO SCH (09:00)
[2022-06-16] MEDS: ASPIRIN 81 MG TABLET(ECOTRIN) PO SCH (10:05)
[2022-06-16] MEDS: ASCORBIC ACID 500 MG TABLET PO SCH (10:05)
[2022-06-16] MEDS: MEGESTROL ACETATE 400 MG/10 ML UDC PO SCH (10:05)
[2022-06-16] MEDS: DOCUSATE SODIUM 250 MG CAPSULE PO SCH (10:05)
[2022-06-16] MEDS: LACTOBACILLUS RHAMNOSUS GG 1 CAP CAPSULE PO SCH (10:05)
[2022-06-16] MEDS: CHOLECALCIFEROL (VITAMIN D3) 2,000 UNIT TABLET PO SCH (10:05)
[2022-06-16] MEDS: FAMOTIDINE 20 MG TABLET PO SCH (10:05)
[2022-06-16] MEDS: MULTIVITS,CA,MINERALS/IRON/FA 1 TABLET PO SCH (10:06)
[2022-06-16] MEDS: AMIODARONE HCL 200 MG TABLET PO SCH (10:06)
[2022-06-16] MEDS: MAGNESIUM OXIDE 400 MG TABLET PO SCH (10:06)
[2022-06-16] MEDS: guaiFENesin/DEXTROMETHORPHAN 10 ML UDC PO PRN (11:52)
[2022-06-16 12:15] VITALS: BP_SYST 142
[2022-06-16] MEDS ORDERED: LEVO250T73 PO (13:32)
[2022-06-16] MEDS ORDERED: DEC4 PO (13:33)
[2022-06-16 14:14] VITALS: BP_SYST 145
[2022-06-16 16:00] VITALS: BP_SYST 134
[2022-06-16] MEDS: QUEtiapine FUMARATE 25 MG TABLET PO SCH (18:27)
== END 2022-06-16 20:44 | DRG 871 ==
LOC: SED 12:53 → STU 15:08 → SMU 06-15 17:42
PROVIDERS: ADMIT Internal Medicine; ATTEND Internal Medicine
DX: A41.9 Sepsis, unspecified organism (principal); J12.82 Pneumonia due to coronavirus disease 2019; U07.1 COVID-19; J96.20 Acute and chronic respiratory failure, unspecified whether with hypoxia or hypercapnia; E44.0 Moderate protein-calorie malnutrition; J44.1 Chronic obstructive pulmonary disease with (acute) exacerbation; J44.0 Chronic obstructive pulmonary disease with (acute) lower respiratory infection; G20 Parkinson's disease; I25.10 Atherosclerotic heart disease of native coronary artery without angina pectoris; E78.5 Hyperlipidemia, unspecified; F32.A Depression, unspecified; I11.0 Hypertensive heart disease with heart failure; I50.9 Heart failure, unspecified; F41.9 Anxiety disorder, unspecified; D63.8 Anemia in other chronic diseases classified elsewhere; F02.80 Dementia in other diseases classified elsewhere, unspecified severity, without behavioral disturbance, psychotic disturbance, mood disturbance, and anxiety; Z68.21 Body mass index [BMI] 21.0-21.9, adult; Z86.73 Personal history of transient ischemic attack (TIA), and cerebral infarction without residual deficits; Z90.710 Acquired absence of both cervix and uterus; Z99.81 Dependence on supplemental oxygen; Z95.1 Presence of aortocoronary bypass graft; Z88.0 Allergy status to penicillin; Z88.2 Allergy status to sulfonamides; Z79.899 Other long term (current) drug therapy
CPT/HCPCS: 36415; 71045; 71250-TC; 76376; 80048; 80053; 83605; 83735; 83880; 84100; 84484; 85025; 87040; 87081; 92610-GN; 93005; 94640; 94664; 94760; 96365; 96367; 96368; 97116-GP; 97530-GP; 99285; G0378; J0456; J1100; J1650; J1956; J3490; J7040; J7050; J7626; J8540